=== PATIENT | male | born 1955 | race Caucasian/White ===

== ENCOUNTER 2018-05-25 17:19 | Inpatient (IN) ==
[2018-05-25] MEDS ORDERED: ONDANSETRON INJ 2 MG/ML 2 ML VIAL ONE (17:51)
--- NOTE | 2018-05-25 17:59 | XRay Report ---
SINGLE VIEW CHEST CLINICAL HISTORY: Cough and fever. FINDINGS: 2 AP, portable, upright chest radiographs are compared to study dated 05/20/2018. The examin ation is degraded by portable technique and patient rotation. The cardiomediastinal silhouette is un remarkable, noting atherosclerotic calcification of the thoracic aorta. Emphysema is suspected. Nonsp ecific interstitial thickening is unchanged and likely chronic. No airspace consolidation or large pl eural effusion is identified. Mild bibasilar scarring/atelectasis is observed. No pneumothorax is see n. The bony thorax is grossly intact. Cholecystectomy clips are seen in the right upper quadrant. IMPRESSION: No active disease in the chest. Electronically signed by: Dwayne Kaplan M.D. 05/25/2018 5:58 PM
[2018-05-25 18:01] LABS: Basophils # (auto) 0.01 K/uL (0-0.2); Eosinophils # (auto) 0.01 K/uL (0-0.5); Hematocrit (blood only) 43.7 % (42-52); Immature Granulocytes # (auto) 0.08 K/uL (0.00-0.02); Immature Granulocytes % (auto) 0.4 %; Lymphocytes # (auto) 0.42 K/uL (1.2-3.4); Lymphocytes % (auto) 2.1 %; Mean Corpuscular Hgb Conc 34.3 g/dL (32-36); Mean Corpuscular Volume 90.3 fL (80-100); Mean Platelet Volume 10.6 fL (7.4-10.4); Monocytes # (auto) 1.33 K/uL (0.11-0.59); Monocytes % (auto) 6.6 %; Neutrophils # (auto) 18.23 K/uL (1.4-6.5); Neutrophils % (auto) 90.9 %; Platelet Count 204 K/uL (130-400); RDW Standard Deviation 46.4 fL (36.4-46.3); Red Blood Count 4.84 M/uL (4.7-6.1); White Blood Count 20.08 K/uL (4.8-10.8)
[2018-05-25 18:21] LABS: Albumin Level 3.5 gm/dl (3.4-5.0); BUN Creatinine Ratio 14.4 (10-20); Calcium 8.9 mg/dl (8.5-10.1); Creatinine Clr Calc Pharmacy 84.8 ml/min; Est GFR (Non-African American) 75.1; Potassium 3.7 mmol/L (3.5-5.1)
[2018-05-25 18:23] LABS: Albumin Globulin Ratio 0.9 (0.9-2); Globulin 3.9 gm/dl (2.5-4.0); Total Protein 7.4 gm/dl (6.4-8.2)
[2018-05-25 18:29] LABS: Appearance Urine Clear (Clear); Bacteria Urine Automated Negative (Negative); Color Urine Orange; Epithelial Cell Urine Auto 20-30 /lpf (0-5); Glucose Urine UA Negative (Negative); Ketones Urine Trace (Negative); Leukocyte Esterase Urine 1+ (Negative); Nitrite Urine Positive (Negative); Protein Urine 1+ (Negative); Specific Gravity Urine 1.035 (1.000-1.030); Urobilinogen Urine Negative (Negative)
[2018-05-25] MEDS ORDERED: SODIUM CHLORIDE 0.9% 1000ML 1,000 ML IV ONE (18:30)
[2018-05-25] MEDS ORDERED: ONDANSETRON INJ 2 MG/ML 2 ML VIAL IV STA (18:30)
[2018-05-25 18:33] LABS: Bilirubin Urine 3+ (Negative); Ictotest Urine Positive (Negative)
[2018-05-25] MEDS ORDERED: OPTIRAY 320 125ml IV PRN (18:58)
--- NOTE | 2018-05-25 19:14 | CT Scan Report ---
CT SCAN OF THE ABDOMEN AND PELVIS WITH IV CONTRAST CLINICAL HISTORY: Postoperative fever and jaundice. Recent cholecystectomy. COMPARISON STUDY: Abdominal CT dated 05/19/2018. TECHNIQUE: Following the IV administration of 120 cc of Optiray 320, CT scan of the abdomen and pelv is is performed from the lung bases to the proximal femora. Images are reviewed in the axial, sagitta l, and coronal planes. IV contrast was administered without complication. A dose lowering technique w as utilized adhering to the principles of ALARA. CT DOSE: 726.56 mGy.cm FINDINGS: Lung bases: The heart is normal in size and without pericardial effusion. There is bibasilar scarring /atelectasis. No airspace consolidation or pleural effusion is identified. Liver: The contrast-enhanced liver is enlarged, measuring 19.9 cm in length. The liver is otherwise n ormal in contour and attenuation. There is no intrahepatic biliary ductal dilatation. The hepatic vei ns and portal veins are patent. Gallbladder: Surgically absent noting clips in the gallbladder fossa. There is trace fluid and strand ing noted within the gallbladder fossa. No organized fluid collection is identified. Mild wall thicke robert and enhancement is noted involving the common bile duct. Spleen: Normal in size and attenuation. Pancreas: Unremarkable. Adrenal glands: Unremarkable. Kidneys: The contrast enhanced kidneys are normal in size and without hydronephrosis. The kidneys enh ance symmetrically. Abdominal vasculature: The abdominal aorta is normal in course and caliber noting mild atheroscleroti c calcification. Bowel: There is moderate colonic diverticulosis without CT evidence of acute diverticulitis. No bowel obstruction is seen. The appendix is well-visualized and normal. The colon is largely decompressed. There is no convincing CT evidence of colitis. Submucosal fat deposition is noted throughout the col on. A small duodenal thickening is noted. Peritoneum: Intraperitoneal free air is seen below the diaphragm. Trace free fluid is seen in the pel vis. Lymphadenopathy: A prominent right cardiophrenic node measures up to 10 mm in length. This is likely on a reactive basis. No retroperitoneal common iliac chain, pelvic, or inguinal adenopathy is seen.. Pelvic viscera: The prostate gland is mildly enlarged and heterogeneous. The bladder and seminal vesi cles are normal as imaged. Fatty reconversion is noted along the right internal canal. Skeletal structures: There is mild lumbosacral spondylosis. No lytic or blastic lesions are seen. IMPRESSION: 1. There are postoperative changes from interval cholecystectomy when compared to 05/19/2018. 2. There is trace fluid and stranding within the gallbladder fossa. No organized fluid collection is identified and this is likely expected postoperative change. 3. Intraperitoneal free air is nonspecific and likely related to recent surgery. 4. There is no significant intrahepatic biliary ductal dilatation. 5. There is mild wall thickening and enhancement of the common bile duct. This is nonspecific and lik yas related to recent surgery. Superimposed infection would be impossible to exclude. Clinical correl ation will be required. 6. Trace free fluid is seen in the pelvis. 7. There is moderate colonic diverticulosis without CT evidence of acute diverticulitis. 8. Additional findings as above. Electronically signed by: Dwayne Kaplan M.D. 05/25/2018 7:11 PM
[2018-05-25] MEDS ORDERED: metroNIDAZOLE 500 MG/100 ML BAG IV STA (19:17)
[2018-05-25] MEDS ORDERED: cefTRIAXone SODIUM 1,000 MG/50 ML BAG IV STA (19:17)
[2018-05-25] MEDS ORDERED: PIPERACILL/TAZOBAC CONSULT ACTIVE PRN (19:36)
[2018-05-25] MEDS ORDERED: PROMETHAZINE HCL 25 MG in SODIUM CHLORIDE 0.9% 50 ML IV PRN (19:47)
[2018-05-25] MEDS ORDERED: PROMETHAZINE HCL 12.5 MG in SODIUM CHLORIDE 0.9% 50 ML IV PRN (19:47)
--- NOTE | 2018-05-25 20:06 | History & Physical Report ---
Date of Service May 25, 2018 Assessment & Plan (1) Cholangitis: Patient will be admitted to the hospital with suspected common bile duct obstruction. We will give him IV fluids and IV antibiotics. I have discussed his case with the hospitalist team And the GI doctor covering for the [facility] physicians. It is likely that he will require an ERCP In the near future. We will also add antiemetics to his medications. For the surgical service Dr. Stacy will be taking over tomorrow. History of Present Illness Primary Care Provider: Massimo Canchola MD Patient presents the emergency room with nausea and low-grade fever and generally not feeling well. He had a recent laparoscopic cholecystectomy on 05/21/[address] Stacy with cholangiogram which did not Show any filling defects. He did have some preoperative elevation of his liver function studies. These did come down Prior to discharge. Now in the emergency room they are elevated a total bilirubin of 3.0 and elevated AST, ALT, alkaline phosphatase. He also has a leukocytosis of 20,000. He is afebrile at the present time. His CAT scan does not show any significant abscess or fluid collection. There is some question of edema Of the common bile duct. During his hospitalization he was seen by [facility] GI doctors. Allergies Allergy/AdvReac Type Severity Reaction Status Date / Time Sulfa (Sulfonamide Allergy Unknown HAPPENED Verified 05/25/18 18:17 Antibiotics) A CHILD Home Medications Home Medications Medication Instructions Recorded Confirmed Type pantoprazole 40 mg PO BID 05/19/18 05/25/18 History sertraline 100 mg PO DAILY 05/19/18 05/25/18 History sennosides-docusate sodium 1 tab PO DAILY PRN #10 tab 05/22/18 05/25/18 Rx [Senokot-S] acetaminophen [Mapap 650 mg PO Q4H PRN 05/25/18 05/25/18 History (acetaminophen)] ibuprofen [Motrin IB] 200 - 800 mg PO DIRECTED PRN 05/25/18 05/25/18 History Past Med/Surg History Medical History Elevated LFTs (Acute) Gallstone (Acute) Depression GERD (gastroesophageal reflux disease) Hepatitis Social History Current Living Situation: Family Feels Safe at Home: Yes Smoking Status: Never smoker Tobacco Type: cigarettes Cigarettes per Day: 10 Hx Alcohol Use: No Hx Substance Use: No Beliefs That Will Affect Care: None Preferred Language: Norwegian Review of Systems Please see HPI 10 other systems reviewed and negative Physical Exam 2 Vital Signs (Past 24 Hours): Last Vital Signs Temp 36.4 C L 05/25/18 17:20 Pulse 132 H 05/25/18 17:20 Resp 20 05/25/18 17:20 BP 100/68 05/25/18 17:20 Pulse Ox 94 05/25/18 17:36 Currently patient is in the ER bed he is awake and alert does appear to be somewhat ill. He does not show significant icterus his neck is supple. He is in no respiratory distress. His heart shows regular rhythm with mild tachycardia. His extremities are warm. Results & Data Diagnostic Findings I did review his CAT scan
[2018-05-25] MEDS ORDERED: SODIUM CHLORIDE 0.9% 1000ML 1,000 ML IV SCH (20:15)
[2018-05-25] MEDS ORDERED: POTASSIUM CHLORIDE 20 MEQ TABCR PO STA (20:19)
[2018-05-25] MEDS ORDERED: NSS + 20MEQ KCL 20 MEQ/1,000 ML BAG IV ONE (20:23)
[2018-05-25] MEDS ORDERED: DOCUSATE SODIUM/SENNA 50/8.6MG TAB PO PRN (20:29)
[2018-05-25] MEDS ORDERED: PIPERACILLIN/TAZOBACTAM 3.375 GM in DEXTROSE 5% 100 ML IV ONE ×2 (20:45→22:00)
[2018-05-25] MEDS: ONDANSETRON INJ 2 MG/ML 2 ML VIAL IV PRN (20:57)
[2018-05-25 21:13] LABS: Magnesium 1.6 mg/dl (1.8-2.4)
[2018-05-25] MEDS: PANTOprazole 40 MG TAB PO SCH (21:23)
[2018-05-25] MEDS ORDERED: ACETAMINOPHEN 325 MG TAB PO PRN (21:28)
--- NOTE | 2018-05-25 21:33 | Hospitalist Consultation ---
Date of Consultation May 25, 2018 Assessment & Plan (1) Sepsis: Final Assessment and Recommendations as follows : Sepsis Possible sources : Biliary tract ? Beginning cholangitis ? UTI mood disorder, stable prediabetes, hemoglobin A1c of 5.9 during recent confinement ongoing tobacco abuse. Cultures, check lactic acid IV fluid Agree with Zosyn Follow LFTs in a.m. GI consult in a.m. RE CBD thickening on imaging Nicotine patch as needed DVT prophylaxis. SCDs as per General Surgery admission orders (Recommend pharmacologic anticoagulation with Lovenox 40 mg SQ daily once bleeding risk is deemed to be minimal and negligible by primary service.) Thank you very much for this consultation. Dr. Ciu will follow patient's progress. History of Present Illness Reason for Consultation: medical management Requesting Physician: Dr. Clemons Attending Physician: Aileen Stacy MD History of Present Illness PCP : Dr. Canchola History obtained from patient, family, and records. Medical history significant for mood disorder, prediabetes, ongoing tobacco abuse. Recent confinement May 19-2018 for gangrenous cholecystitis status post cholecystectomy. Tolerable postop discomfort at home. Today patient woke up this morning, not feeling well w/ poor appetite, nausea symptoms. Fever at home. No unusual abdominal pain as per patient. Urine kind of dark. Rectal urgency although patient denies diarrhea. Patient denies chest pain, SOB, cough symptoms. At the ER, patient received Ceftriaxone and Flagyl for possible sepsis. Patient currently admitted under General Surgery service. Medical History as above Surgical History : Hemorrhoidectomy, cholecystectomy, biopsy procedures for fertility treatments Family History : Heart disease, diabetes Personal/Social history : 1.5 packs daily, no EtOH intake, local company truck driver/ businessman Allergies Allergy/AdvReac Type Severity Reaction Status Date / Time Sulfa (Sulfonamide Allergy Unknown HAPPENED Verified 05/25/18 18:17 Antibiotics) A CHILD Home Medications Home Medications Medication Instructions Recorded Confirmed Type pantoprazole 40 mg PO BID 05/19/18 05/25/18 History sertraline 100 mg PO DAILY 05/19/18 05/25/18 History sennosides-docusate sodium 1 tab PO DAILY PRN #10 tab 05/22/18 05/25/18 Rx [Senokot-S] acetaminophen [Mapap 650 mg PO Q4H PRN 05/25/18 05/25/18 History (acetaminophen)] ibuprofen [Motrin IB] 200 - 800 mg PO DIRECTED PRN 05/25/18 05/25/18 History Patient History Medical History Elevated LFTs (Acute) Gallstone (Acute) Depression GERD (gastroesophageal reflux disease) Hepatitis Social History Current Living Situation: Spouse Other Information That Helps Us Care for You: No Feels Safe at Home: Yes Safety Concerns: Feels Safe At This Time Smoking Status: Current every day smoker Tobacco Type: cigarettes Do You Dip or Chew Tobacco: No Second Hand Exposure: Yes Tobacco Cessation Education Requested by Patient: Yes Hx Alcohol Use: No Hx Substance Use: No Beliefs That Will Affect Care: None Preferred Language: [place] Communication Ability: Effective Review of Systems As per HPI, all 10 systems reviewed, all other ROS negative Physical Exam 2 Vital Signs (Past 24 Hours): Last Vital Signs Temp 37.5 C 05/25/18 20:31 Pulse 136 H 05/25/18 20:31 Resp 16 05/25/18 20:31 BP 124/78 05/25/18 20:31 Pulse Ox 96 05/25/18 20:31 Physical Exam: GENERAL: uncomfortable, lying on his right side, no respiratory distress SKIN: Pallor , warm HEENT: Alopecia, pale palpebral conjunctivae, no ptosis, adhesive strip over nasal dorsum, dry buccal mucosa NECK : Supple, no tenderness CHEST : CTA, no tenderness HEART : Tachycardic , no obvious murmurs ABDOMEN: Some distention, no overt tenderness, dressings in place EXTREMITIES : No LE swelling/tenderness, no other conspicuous deformities noted NEUROLOGIC : Coherent, no facial asymmetry, no other gross focality Results & Data Laboratory Results Laboratory Results WBC 20.08 K/uL (4.8-10.8) H 05/25/18 17:48 RBC 4.84 M/uL (4.7-6.1) 05/25/18 17:48 Hgb 15.0 g/dL (14.0-18.0) 05/25/18 17:48 Hct 43.7 % (42-52) 05/25/18 17:48 MCV 90.3 fL (80-100) 05/25/18 17:48 MCH 31.0 pg (25-34) 05/25/18 17:48 MCHC 34.3 g/dL (32-36) 05/25/18 17:48 RDW Std Deviation 46.4 fL (36.4-46.3) H 05/25/18 17:48 RDW Coeff of Angela 14.0 % (11.5-14.5) 05/25/18 17:48 Plt Count 204 K/uL (130-400) 05/25/18 17:48 MPV 10.6 fL (7.4-10.4) H 05/25/18 17:48 Immature Gran % (Auto) 0.4 % 05/25/18 17:48 Neut % (Auto) 90.9 % 05/25/18 17:48 Lymph % (Auto) 2.1 % 05/25/18 17:48 [place] % (Auto) 6.6 % 05/25/18 17:48 Eos % (Auto) 0.0 % 05/25/18 17:48 Baso % (Auto) 0.0 % 05/25/18 17:48 Immature Gran # (Auto) 0.08 K/uL (0.00-0.02) H 05/25/18 17:48 Neut # (Auto) 18.23 K/uL (1.4-6.5) H 05/25/18 17:48 Lymph # (Auto) 0.42 K/uL (1.2-3.4) L 05/25/18 17:48 [place] # (Auto) 1.33 K/uL (0.11-0.59) H 05/25/18 17:48 Eos # (Auto) 0.01 K/uL (0-0.5) 05/25/18 17:48 Baso # (Auto) 0.01 K/uL (0-0.2) 05/25/18 17:48 Sodium 136 mmol/L (136-145) 05/25/18 17:48 Potassium 3.7 mmol/L (3.5-5.1) 05/25/18 17:48 Chloride 104 mmol/L (98-107) 05/25/18 17:48 Carbon Dioxide 25 mmol/L (21-32) 05/25/18 17:48 Anion Gap 7.0 (3-11) 05/25/18 17:48 BUN 15 mg/dl (7-18) 05/25/18 17:48 Creatinine 1.07 mg/dl (0.6-1.4) 05/25/18 17:48 Est Cr Clr Drug Dosing 84.8 ml/min 05/25/18 17:48 Est GFR ( Amer) 87.0 05/25/18 17:48 Est GFR (Non-Af Amer) 75.1 05/25/18 17:48 BUN/Creatinine Ratio 14.4 (10-20) 05/25/18 17:48 Glucose 115 mg/dl (70-99) H 05/25/18 17:48 Lactate 1.4 mmol/L (0.4-2.0) 05/25/18 20:48 Calcium 8.9 mg/dl (8.5-10.1) 05/25/18 17:48 Magnesium 1.6 mg/dl (1.8-2.4) L 05/25/18 20:48 Total Bilirubin 3.0 mg/dl (0.2-1) H 05/25/18 17:48 AST 221 U/L (15-37) H 05/25/18 17:48 ALT 319 U/L (12-78) H 05/25/18 17:48 Alkaline Phosphatase 431 U/L (45-117) H 05/25/18 17:48 Total Protein 7.4 gm/dl (6.4-8.2) 05/25/18 17:48 Albumin 3.5 gm/dl (3.4-5.0) 05/25/18 17:48 Globulin 3.9 gm/dl (2.5-4.0) 05/25/18 17:48 Albumin/Globulin Ratio 0.9 (0.9-2) 05/25/18 17:48 Lipase 81 U/L (73-393) 05/25/18 17:48 Urine Color [place] 05/25/18 17:55 Urine Appearance Clear (Clear) 05/25/18 17:55 Urine pH 6.0 (4.5-7.5) 05/25/18 17:55 Ur Specific [place] 1.035 (1.000-1.030) H 05/25/18 17:55 Urine Protein 1+ (Negative) H 05/25/18 17:55 Urine Glucose (UA) Negative (Negative) 05/25/18 17:55 Urine Ketones Trace (Negative) H 05/25/18 17:55 Urine Blood Negative (Negative) 05/25/18 17:55 Urine Nitrite Positive (Negative) H 05/25/18 17:55 Urine Bilirubin 3+ (Negative) H 05/25/18 17:55 Urine Urobilinogen Negative (Negative) 05/25/18 17:55 Ur Leukocyte Esterase 1+ (Negative) H 05/25/18 17:55 Urine WBC (Auto) 1-5 /hpf (0-5) 05/25/18 17:55 Urine RBC (Auto) 0-4 /hpf (0-4) 05/25/18 17:55 U Hyaline Cast (Auto) 5-10 /lpf (0-5) H 05/25/18 17:55 U Epithel Cells (Auto) 20-30 /lpf (0-5) H 05/25/18 17:55 Urine Bacteria (Auto) Negative (Negative) 05/25/18 17:55 Diagnostic Findings CXR no active disease: CT abdomen pelvis: 1. There are postoperative changes from interval cholecystectomy when compared to 05/19/2018. 2. There is trace fluid and stranding within the gallbladder fossa. No organized fluid collection is identified and this is likely expected postoperative change. 3. Intraperitoneal free air is nonspecific and likely related to recent surgery. 4. There is no significant intrahepatic biliary ductal dilatation. 5. There is mild wall thickening and enhancement of the common bile duct. This is nonspecific and likely related to recent surgery. Superimposed infection would be impossible to exclude. Clinical correlation will be required. 6. Trace free fluid is seen in the pelvis. 7. There is moderate colonic diverticulosis without CT evidence of acute diverticulitis. EKG as per my interpretation: Rate 115, sinus tachycardia, LAD, LAFB, inferior infarct, MN WP
--- NOTE | 2018-05-25 21:42 | Emergency Department Note ---
Entered by Henry Lundy acting as a scribe for History of Present Illness General Chief complaint: Vomiting Stated complaint: SURG WED, VOMITING,FEVER Source: patient Limitations: no limitations History of Present Illness Provider complaint: Nausea Onset (ago): hour(s) (13.5) Location: abdomen ([place]) Severity: moderate (101.0) Pain Consistency: + constant Maximum Pain Intensity: 3 Quality: + other (Fever, nausea) Associated symptoms: + fever/chills The patient is a 62 year old male who presents to the Emergency Room with complaints of persistent nausea that began at 0400 this morning, 13.5 hours ago. The patient states that he had a cholecystectomy performed on Saturday, 4 days ago and was discharged from the hospital the next day. The cholecystectomy was not planned and he was taken to the OR after presenting to the emergency department with abdominal pain. He notes that he woke up this morning feeling nauseous and febrile. The patient has not vomited at all. He did have a recorded temperature of 101.0 degrees earlier this morning per the . He denies any new abdominal pain, or cough/runny nose/urinary symptoms. The patient visited with his PCP today who referred him to the emergency department as he thought he was "jaundiced." He adds that he had 6 "small bowel movements" throughout the day today, but adds that he has had issues with hist bowel movements his whole life. Home Medications Home Medications Medication Instructions Recorded Confirmed Type pantoprazole 40 mg PO BID 05/19/18 05/25/18 History sertraline 100 mg PO DAILY 05/19/18 05/25/18 History sennosides-docusate sodium 1 tab PO DAILY PRN #10 tab 05/22/18 05/25/18 Rx [Senokot-S] acetaminophen [Mapap 650 mg PO Q4H PRN 05/25/18 05/25/18 History (acetaminophen)] ibuprofen [Motrin IB] 200 - 800 mg PO DIRECTED PRN 05/25/18 05/25/18 History Allergies Allergy/AdvReac Type Severity Reaction Status Date / Time Sulfa (Sulfonamide Allergy Unknown HAPPENED Verified 05/25/18 18:17 Antibiotics) A CHILD Past Med/Surg History Medical History Elevated LFTs (Acute) Gallstone (Acute) Depression GERD (gastroesophageal reflux disease) Hepatitis Social History Current Living Situation: Spouse Other Information That Helps Us Care for You: No Feels Safe at Home: Yes Safety Concerns: Feels Safe At This Time Smoking Status: Current every day smoker Tobacco Type: cigarettes Do You Dip or Chew Tobacco: No Second Hand Exposure: Yes Tobacco Cessation Education Requested by Patient: Yes Hx Alcohol Use: No Hx Substance Use: No Beliefs That Will Affect Care: None Preferred Language: Kiswahili Communication Ability: Effective Review of Systems See HPI for pertinent positives & negatives. and A total of 10 systems reviewed and were otherwise negative Physical Exam Vital Signs Vital Signs - 24 hr 05/25/18 17:20 05/25/18 17:36 05/25/18 20:20 Temperature 36.4 C L 37.1 C Temperature Source Oral Oral Sepsis Recent Fever Within 48 Hours Yes Sepsis New/Unexplained Change in Mental Status No Sepsis Action Taken by Nursing No Action Required Pulse Rate 132 H 103 H Pulse Rate [Right Finger] Pulse Rhythm Regular Pulse Strength Normal Respiratory Rate 20 16 Respiratory Effort / Characteristics Respiratory Depth Normal Respiratory Pattern Regular Blood Pressure 100/68 101/52 L Blood Pressure [Left Arm] Blood Pressure Mean 78 Blood Pressure Mean [Left Arm] Blood Pressure Position Sitting Blood Pressure Position [Left Arm] Pulse Oximetry 95 94 98 Oxygen Delivery Method Room Air Room Air 05/25/18 20:31 Temperature 37.5 C Temperature Source Oral Sepsis Recent Fever Within 48 Hours Sepsis New/Unexplained Change in Mental Status Sepsis Action Taken by Nursing Pulse Rate Pulse Rate [Right Finger] 136 H Pulse Rhythm Pulse Strength Respiratory Rate 16 Respiratory Effort / Characteristics Non-Labored Spontaneous Respiratory Depth Normal Respiratory Pattern Regular Blood Pressure Blood Pressure [Left Arm] 124/78 Blood Pressure Mean Blood Pressure Mean [Left Arm] 93 Blood Pressure Position Blood Pressure Position [Left Arm] Sitting Pulse Oximetry 96 Oxygen Delivery Method Room Air GENERAL: Sitting up in bed, alert, chronically ill appearing, no distress, non- toxic EYE EXAM: normal conjunctiva. OROPHARYNX: no exudate, no erythema, lips, buccal mucosa, and tongue normal and mucous membranes are moist NECK: supple, no nuchal rigidity, no adenopathy, non-tender LUNGS: Clear to auscultation. Normal chest wall mechanics HEART: no murmurs, S1 normal and S2 normal ABDOMEN: abdomen soft. There are 4 port incisions in abdomen - clean, dry, intact. Steri-strips are in place. Faint tenderness present in right upper quadrant. Normo-active bowel, sounds, no masses, no rebound or guarding. BACK: Back is symmetrical on inspection and there is no deformity, no midline tenderness, no CVA tenderness. SKIN: no rashes and no bruising UPPER EXTREMITIES: upper extremities are grossly normal. LOWER EXTREMITIES: No pitting edema. NEURO EXAM: Normal sensorium, cranial nerves II-XII grossly intact, normal speech, no gross weakness of arms, no gross weakness of legs. Course ED COURSE: Vital signs were reviewed and showed hypertensive and tachycardic vitals. The patients medical record was reviewed The above diagnostic studies were performed and reviewed. ED treatments and interventions as stated above. 1725: The patient was evaluated in room B10. A complete history and physical examination was performed. 1920: I reviewed the patient's case with Dr. Deonte Avila. He will admit the patient. 1927: Upon reevaluation, the patient is resting in bed. I discussed my findings with the patient and he understands and agrees with the treatment plan. Based on the patients age, coexisting illnesses, exam and lab findings the decision to treat as an inpatient was made. The patient remained stable while under my care. The patient will be evaluated for further management. Consultations Consultation #1: 1920: I reviewed the patient's case with Dr. Deonte Avila. He will admit the patient. Administered Medications Potassium Chloride/Sodium Chloride (Normal Saline W/20 Meq Kcl) 20 meq in 1, 000 mls @ 500 mls/hr IV .Q2H ONE Stop: 05/25/18 22:22 Last Admin: 05/25/18 21:16 Dose: 500 mls/hr Ioversol (Optiray 320 125ml) 120 ml IV ONCE PRN PRN Reason: Interaction Checking Stop: 05/29/18 18:57 Last Admin: 05/25/18 18:58 Dose: 120 ml Ondansetron HCl (Zofran) 4 mg IV Q3HWA PRN PRN Reason: Nausea Stop: 06/24/18 19:46 Last Admin: 05/25/18 20:57 Dose: 4 mg Pantoprazole Sodium (Protonix) 40 mg PO BID SUZETTE Stop: 06/24/18 20:59 Last Admin: 05/25/18 21:23 Dose: 40 mg Discontinued Medications Sodium Chloride (Nss 1000ml) 1,000 mls @ 999 mls/hr IV .Q1H1M ONE Stop: 05/25/18 19:30 Last Infusion: 05/25/18 19:53 Dose: 0 mls/hr Admin: 05/25/18 18:46 Dose: 999 mls/hr Metronidazole (Flagyl) 500 mg in 100 mls @ 100 mls/hr IV NOW STA Stop: 05/25/18 20:16 Last Infusion: 05/25/18 21:29 Dose: 0 mls/hr Admin: 05/25/18 19:51 Dose: 100 mls/hr Ceftriaxone Sodium (Rocephin) 1,000 mg in 50 mls @ 100 mls/hr IV NOW STA Stop: 05/25/18 19:46 Last Infusion: 05/25/18 20:21 Dose: 0 mls/hr Admin: 05/25/18 19:51 Dose: 100 mls/hr Sodium Chloride (Nss 1000ml) 1,000 mls @ 125 mls/hr IV .Q8H SUZETTE Stop: 06/24/18 20:14 Last Admin: 05/25/18 21:32 Dose: Not Given Piperacillin Sod/Tazobactam (Sod 3.375 gm/ Dextrose) 115 mls @ 230 mls/hr IV ONE ONE Stop: 05/25/18 21:14 Last Admin: 05/25/18 21:29 Dose: 230 mls/hr Ondansetron HCl (Zofran) Confirm Administered Dose 4 mg .ROUTE .STK-MED ONE Stop: 05/25/18 17:52 Last Admin: 05/25/18 17:54 Dose: 4 mg Ondansetron HCl (Zofran) 4 mg IV NOW STA Stop: 05/25/18 18:31 Last Admin: 05/25/18 18:45 Dose: Not Given Potassium Chloride (Klor-Con M20) 40 meq PO NOW STA Stop: 05/25/18 20:20 Last Admin: 05/25/18 21:23 Dose: 40 meq Medical Decision Making Differential Diagnosis Differential diagnosis: Etiologies such as biliary colic, cholecystitis, hepatitis, pancreatitis, cardiac disease, pancreatitis, gastritis, peptic ulcer disease, appendicitis, cystitis, diverticulitis, mesenteric ischemia, inflammatory bowel disease, ileus , bowel obstruction, testicular torsion, aortic pathology, shingles, as well as others were considered. Medical Records Attestation: I reviewed the patient's medical records. Home Medications Current Medication List: was personally reviewed by me Laboratory Data Attestation: I reviewed the patient's lab results. Result diagrams: 05/25/18 17:48 05/25/18 17:48 Lab Results 05/25/18 05/25/18 05/25/18 Range/Units 17:48 17:48 17:55 WBC 20.08 H (4.8-10.8) K/uL RBC 4.84 (4.7-6.1) M/uL Hgb 15.0 (14.0-18.0) g/dL Hct 43.7 (42-52) % MCV 90.3 (80-100) fL MCH 31.0 (25-34) pg MCHC 34.3 (32-36) g/dL RDW Std Deviation 46.4 H (36.4-46.3) fL RDW Coeff of Angela 14.0 (11.5-14.5) % Plt Count 204 (130-400) K/uL MPV 10.6 H (7.4-10.4) fL Immature Gran % (Auto) 0.4 % Neut % (Auto) 90.9 % Lymph % (Auto) 2.1 % [place] % (Auto) 6.6 % Eos % (Auto) 0.0 % Baso % (Auto) 0.0 % Immature Gran # (Auto) 0.08 H (0.00-0.02) K/uL Neut # (Auto) 18.23 H (1.4-6.5) K/uL Lymph # (Auto) 0.42 L (1.2-3.4) K/uL [place] # (Auto) 1.33 H (0.11-0.59) K/uL Eos # (Auto) 0.01 (0-0.5) K/uL Baso # (Auto) 0.01 (0-0.2) K/uL Sodium 136 (136-145) mmol/L Potassium 3.7 (3.5-5.1) mmol/L Chloride 104 (98-107) mmol/L Carbon Dioxide 25 (21-32) mmol/L Anion Gap 7.0 (3-11) BUN 15 (7-18) mg/dl Creatinine 1.07 (0.6-1.4) mg/dl Est Cr Clr Drug Dosing 84.8 ml/min Est GFR ( Amer) 87.0 Est GFR (Non-Af Amer) 75.1 BUN/Creatinine Ratio 14.4 (10-20) Glucose 115 H (70-99) mg/dl Lactate (0.4-2.0) mmol/L Calcium 8.9 (8.5-10.1) mg/dl Magnesium (1.8-2.4) mg/dl Total Bilirubin 3.0 H (0.2-1) mg/dl AST 221 H (15-37) U/L ALT 319 H (12-78) U/L Alkaline Phosphatase 431 H (45-117) U/L Total Protein 7.4 (6.4-8.2) gm/dl Albumin 3.5 (3.4-5.0) gm/dl Globulin 3.9 (2.5-4.0) gm/dl Albumin/Globulin Ratio 0.9 (0.9-2) Lipase 81 (73-393) U/L Urine Color [place] Urine Appearance Clear (Clear) Urine pH 6.0 (4.5-7.5) Ur Specific [place] 1.035 H (1.000-1.030) Urine Protein 1+ H (Negative) Urine Glucose (UA) Negative (Negative) Urine Ketones Trace H (Negative) Urine Blood Negative (Negative) Urine Nitrite Positive H (Negative) Urine Bilirubin 3+ H (Negative) Urine Urobilinogen Negative (Negative) Ur Leukocyte Esterase 1+ H (Negative) Urine WBC (Auto) 1-5 (0-5) /hpf Urine RBC (Auto) 0-4 (0-4) /hpf U Hyaline Cast (Auto) 5-10 H (0-5) /lpf U Epithel Cells (Auto) 20-30 H (0-5) /lpf Urine Bacteria (Auto) Negative (Negative) 05/25/18 05/25/18 Range/Units 20:48 20:48 WBC (4.8-10.8) K/uL RBC (4.7-6.1) M/uL Hgb (14.0-18.0) g/dL Hct (42-52) % MCV (80-100) fL MCH (25-34) pg MCHC (32-36) g/dL RDW Std Deviation (36.4-46.3) fL RDW Coeff of Angela (11.5-14.5) % Plt Count (130-400) K/uL MPV (7.4-10.4) fL Immature Gran % (Auto) % Neut % (Auto) % Lymph % (Auto) % [place] % (Auto) % Eos % (Auto) % Baso % (Auto) % Immature Gran # (Auto) (0.00-0.02) K/uL Neut # (Auto) (1.4-6.5) K/uL Lymph # (Auto) (1.2-3.4) K/uL [place] # (Auto) (0.11-0.59) K/uL Eos # (Auto) (0-0.5) K/uL Baso # (Auto) (0-0.2) K/uL Sodium (136-145) mmol/L Potassium (3.5-5.1) mmol/L Chloride (98-107) mmol/L Carbon Dioxide (21-32) mmol/L Anion Gap (3-11) BUN (7-18) mg/dl Creatinine (0.6-1.4) mg/dl Est Cr Clr Drug Dosing ml/min Est GFR ( Amer) Est GFR (Non-Af Amer) BUN/Creatinine Ratio (10-20) Glucose (70-99) mg/dl Lactate 1.4 (0.4-2.0) mmol/L Calcium (8.5-10.1) mg/dl Magnesium 1.6 L (1.8-2.4) mg/dl Total Bilirubin (0.2-1) mg/dl AST (15-37) U/L ALT (12-78) U/L Alkaline Phosphatase (45-117) U/L Total Protein (6.4-8.2) gm/dl Albumin (3.4-5.0) gm/dl Globulin (2.5-4.0) gm/dl Albumin/Globulin Ratio (0.9-2) Lipase (73-393) U/L Urine Color Urine Appearance (Clear) Urine pH (4.5-7.5) Ur Specific [place] (1.000-1.030) Urine Protein (Negative) Urine Glucose (UA) (Negative) Urine Ketones (Negative) Urine Blood (Negative) Urine Nitrite (Negative) Urine Bilirubin (Negative) Urine Urobilinogen (Negative) Ur Leukocyte Esterase (Negative) Urine WBC (Auto) (0-5) /hpf Urine RBC (Auto) (0-4) /hpf U Hyaline Cast (Auto) (0-5) /lpf U Epithel Cells (Auto) (0-5) /lpf Urine Bacteria (Auto) (Negative) Imaging Data Attestation: I personally reviewed and interpreted this imaging study as follows : Radiologist's Impression: SINGLE VIEW CHEST CLINICAL HISTORY: Cough and fever. FINDINGS: 2 AP, portable, upright chest radiographs are compared to study dated 05/20/2018. The examination is degraded by portable technique and patient rotation. The cardiomediastinal silhouette is unremarkable, noting atherosclerotic calcification of the thoracic aorta. Emphysema is suspected. Nonspecific interstitial thickening is unchanged and likely chronic. No airspace consolidation or large pleural effusion is identified. Mild bibasilar scarring/atelectasis is observed. No pneumothorax is seen. The bony thorax is grossly intact. Cholecystectomy clips are seen in the right upper quadrant. IMPRESSION: No active disease in the chest. Electronically signed by: Dwayne Kaplan M.D. 05/25/2018 5:[address] SCAN OF THE ABDOMEN AND PELVIS WITH IV CONTRAST CLINICAL HISTORY: Postoperative fever and jaundice. Recent cholecystectomy. COMPARISON STUDY: Abdominal CT dated 05/19/2018. TECHNIQUE: Following the IV administration of 120 cc of Optiray 320, CT scan of the abdomen and pelvis is performed from the lung bases to the proximal femora. Images are reviewed in the axial, sagittal, and coronal planes. IV contrast was administered without complication. A dose lowering technique was utilized adhering to the principles of ALARA. CT DOSE: 726.56 mGy.cm FINDINGS: Lung bases: The heart is normal in size and without pericardial effusion. There is bibasilar scarring/atelectasis. No airspace consolidation or pleural effusion is identified. Liver: The contrast-enhanced liver is enlarged, measuring 19.9 cm in length. The liver is otherwise normal in contour and attenuation. There is no intrahepatic biliary ductal dilatation. The hepatic veins and portal veins are patent. Gallbladder: Surgically absent noting clips in the gallbladder fossa. There is trace fluid and stranding noted within the gallbladder fossa. No organized fluid collection is identified. Mild wall thickening and enhancement is noted involving the common bile duct. Spleen: Normal in size and attenuation. Pancreas: Unremarkable. Adrenal glands: Unremarkable. Kidneys: The contrast enhanced kidneys are normal in size and without hydronephrosis. The kidneys enhance symmetrically. Abdominal vasculature: The abdominal aorta is normal in course and caliber noting mild atherosclerotic calcification. Bowel: There is moderate colonic diverticulosis without CT evidence of acute diverticulitis. No bowel obstruction is seen. The appendix is well-visualized and normal. The colon is largely decompressed. There is no convincing CT evidence of colitis. Submucosal fat deposition is noted throughout the colon. A small duodenal thickening is noted. Peritoneum: Intraperitoneal free air is seen below the diaphragm. Trace free fluid is seen in the pelvis. Lymphadenopathy: A prominent right cardiophrenic node measures up to 10 mm in length. This is likely on a reactive basis. No retroperitoneal common iliac chain, pelvic, or inguinal adenopathy is seen.. Pelvic viscera: The prostate gland is mildly enlarged and heterogeneous. The bladder and seminal vesicles are normal as imaged. Fatty reconversion is noted along the right internal canal. Skeletal structures: There is mild lumbosacral spondylosis. No lytic or blastic lesions are seen. IMPRESSION: 1. There are postoperative changes from interval cholecystectomy when compared to 05/19/2018. 2. There is trace fluid and stranding within the gallbladder fossa. No organized fluid collection is identified and this is likely expected postoperative change. 3. Intraperitoneal free air is nonspecific and likely related to recent surgery. 4. There is no significant intrahepatic biliary ductal dilatation. 5. There is mild wall thickening and enhancement of the common bile duct. This is nonspecific and likely related to recent surgery. Superimposed infection would be impossible to exclude. Clinical correlation will be required. 6. Trace free fluid is seen in the pelvis. 7. There is moderate colonic diverticulosis without CT evidence of acute diverticulitis. 8. Additional findings as above. Electronically signed by: Dwayne Kaplan M.D. 05/25/2018 7:11 PM Blood Pressure Blood Pressure Findings: Elevated blood pressure Blood Pressure Disposition: further management by hospitalist BRAYAN Narrative Patient is a 8-year-old male that presents the ER for nausea associated with fevers of 101. He is postop from a cholecystectomy this past Saturday. Vitals were fairly unremarkable. Labs remarkable for a leukocytosis of 20,000. He was tachycardic in the 130s. BMP was unremarkable. Lactate was at 1.4. Bili was elevated at 3 along with a transaminitis in the 300s. Lipase was normal. UA had bilirubin and nitrates. CT abdomen pelvis confirms some thickening of the CBD. Discussed with general surgery. Patient was given 2 L IV fluids, IV Zofran, IV Flagyl and Rocephin for possible ascending cholangitis. I do question a retained stone in CBD. Patient was updated bedside and admitted to the hospitalist for further workup. Impression & Plan Common bile duct (CBD) obstruction, Transaminitis Discharge Plan Visit Data *Final* Discharge Date/Time: 05/25/18 20:20 Chief Complaint: Vomiting Stated Complaint: SURG WED, VOMITING,FEVER ED Provider: Heriberto Velazquez Discharge Problem: Common bile duct (CBD) obstruction, Transaminitis Patient Disposition: Admitted As Inpatient Discharge Instructions Interventions: ED Discharge Assessment Last Done: 05/25/18 20:20 The scribe's documentation has been prepared under my direction and personally reviewed by me in its entirety. I confirm that the note above accurately reflects all work, treatment, procedures, and medical decision making performed by me.
[2018-05-25] MEDS ORDERED: LORazepam 0.5 MG/1 ML VIAL IV PRN (21:59)
[2018-05-25] MEDS: MAGNESIUM SULFATE / D5W 1 GM/100 ML BAG IV SCH ×2 (22:14→23:17)
[2018-05-25] MEDS: NSS + 20MEQ KCL 20 MEQ/1,000 ML BAG IV SCH (23:17)
[2018-05-26] MEDS: PIPERACILLIN/TAZOBACTAM 3.375 GM in DEXTROSE 5% 100 ML IV SCH ×3 (01:25→17:29)
[2018-05-26 06:00] LABS: Basophils # (auto) 0.04 K/uL (0-0.2); Basophils % (auto) 0.2 %; Eosinophils # (auto) 0.04 K/uL (0-0.5); Eosinophils % (auto) 0.2 %; Hemoglobin 14.2 g/dL (14.0-18.0); Immature Granulocytes # (auto) 0.06 K/uL (0.00-0.02); Immature Granulocytes % (auto) 0.3 %; Lymphocytes # (auto) 1.03 K/uL (1.2-3.4); Lymphocytes % (auto) 4.7 %; Mean Corpuscular Hgb Conc 33.8 g/dL (32-36); Mean Corpuscular Volume 92.1 fL (80-100); Mean Platelet Volume 10.5 fL (7.4-10.4); Monocytes # (auto) 0.99 K/uL (0.11-0.59); Monocytes % (auto) 4.5 %; Neutrophils # (auto) 19.96 K/uL (1.4-6.5); Neutrophils % (auto) 90.1 %; Platelet Count 229 K/uL (130-400); RDW Coefficient of Variation 14.5 % (11.5-14.5); RDW Standard Deviation 48.9 fL (36.4-46.3); Red Blood Count 4.56 M/uL (4.7-6.1); White Blood Count 22.12 K/uL (4.8-10.8)
[2018-05-26 06:27] LABS: Albumin Level 3.2 gm/dl (3.4-5.0); BUN Creatinine Ratio 12.5 (10-20); Bilirubin Direct 1.1 mg/dl (0-0.2); Calcium 9.1 mg/dl (8.5-10.1); Creatinine Clr Calc Pharmacy 78.2 ml/min; Est GFR (African American) 78.9; Est GFR (Non-African American) 68.1; Magnesium 2.2 mg/dl (1.8-2.4); Potassium 4.3 mmol/L (3.5-5.1)
[2018-05-26] MEDS: NSS + 20MEQ KCL 20 MEQ/1,000 ML BAG IV SCH ×2 (06:27→16:10)
[2018-05-26 06:31] LABS: Albumin Globulin Ratio 0.8 (0.9-2); Bilirubin,Total 1.5 mg/dl (0.2-1); Globulin 3.8 gm/dl (2.5-4.0)
[2018-05-26] MEDS ORDERED: INFLUENZA ADMINISTRATION CHARGE ONE (08:00)
[2018-05-26] MEDS ORDERED: INFLUENZA VIRUS QUAD VACCINE 0.5 ML SYR IM ONE (08:00)
[2018-05-26] MEDS: SERTRALINE HCL 100 MG TABLET PO SCH (09:04)
--- NOTE | 2018-05-26 09:06 | Gastrointestinal Consultation ---
Date of Consultation May 26, 2018 Assessment & Plan (1) Cholangitis: 1. Due to claustrophobia, we are unable to get an MRCP. 2. Fever, leukocytosis, elevated LFTs is most consistent with cholangitis and urgent ERCP is arranged for this afternoon. 3. Follow LFTs, CBC daily. 4. Keep NPO. 5. Agree with Zosyn and recommend coverage of cholangitis for total of 10 days. Present on Admission?: Yes (2) Diarrhea: 1. Stool for C-diff, culture. Present on Admission?: Yes Supervising Physician Co-Signing Physician Notes I saw and evaluated the patient. ERCP has been requested due to a presentation c/w cholangitis. PE Mild distress RUQ with tenderness to palpation Impression: symptoms and presentation c/w with cholangitis. Will plan for ERCP today with likely stent placement. We have discussed the risks to includee bleeding, infection, perforation, pain, failed cannulation and pancreatitis. Plan ERCP today continue broad spectrum abx History of Present Illness Reason for Consultation: Cholangitis Requesting Physician: Dr. Robert Clemons Attending Physician: Aileen Stacy MD History of Present Illness Mr. Maxwell is a 62 yr old male who was admitted last week to [facility] for cholecystitis. At that time, an US prior to arrival, in the [facility] OP system suggested this as well as a dilated bile duct from 8-13 mm. When he arrived for that admission, CT and US were w/o bile duct abnormalities though the LFTs were elevated (T BIli 4, transaminases 100 - 20's) but trended down He underwent lap cholecystectomy by Dr. Stacy on 05/21 with normal operative cholangiogram. He was discharged on 05/22. He did well until early yesterday morning when he awakened with nausea, vomiting. Later yesterday, he experienced a fever of 101 thus returned to [facility] ED. He reports body aches, new diarrhea starting this morning but has only minimal abominal pain. On arrival, he has leukocytosis 20->22, elevated neutrophils 18->19, and elevated LFTs (T Bili3->1.5), AST 221->132, ALT 319->267, Alk Phos 431->267. On CT, there was note of mild wall thickening of the CBD as well a fluid in the gallbladder fossa but no organized collection. Allergies Allergy/AdvReac Type Severity Reaction Status Date / Time Sulfa (Sulfonamide Allergy Unknown HAPPENED Verified 05/25/18 18:17 Antibiotics) A CHILD Home Medications Home Medications Medication Instructions Recorded Confirmed Type pantoprazole 40 mg PO BID 05/19/18 05/25/18 History sertraline 100 mg PO DAILY 05/19/18 05/25/18 History sennosides-docusate sodium 1 tab PO DAILY PRN #10 tab 05/22/18 05/25/18 Rx [Senokot-S] acetaminophen [Mapap 650 mg PO Q4H PRN 05/25/18 05/25/18 History (acetaminophen)] ibuprofen [Motrin IB] 200 - 800 mg PO DIRECTED PRN 05/25/18 05/25/18 History Patient History Medical History Elevated LFTs (Acute) Gallstone (Acute) Depression GERD (gastroesophageal reflux disease) Hepatitis Social History marital status: Current Living Situation: Spouse Other Information That Helps Us Care for You: No Feels Safe at Home: Yes Safety Concerns: Feels Safe At This Time Smoking Status: Current every day smoker Tobacco Type: cigarettes Cigarettes per Day: 10 Do You Dip or Chew Tobacco: No Hx Alcohol Use: No Hx Substance Use: No Beliefs That Will Affect Care: None Communication Ability: Effective Review of Systems Constitutional: + fever, + chills, + body aches and + fatigue Respiratory: no cough, no chest congestion and no dyspnea Cardiovascular: no chest pain, no dyspnea, no syncope and no edema Gastrointestinal: + abdominal pain, + nausea and + diarrhea/loose stools Genitourinary (Male): no dysuria Neurologic: no tremor(s), no syncope and no confusion Psychiatric: no depression, no irritability and no anxiety Physical Exam 2 Vital Signs (Past 24 Hours): Last Vital Signs Temp 37.0 C 05/25/18 22:58 Pulse 90 05/25/18 22:58 Resp 20 05/25/18 22:58 BP 110/67 05/25/18 22:58 Pulse Ox 94 05/25/18 22:58 Constitutional: well developed, well nourished, + acute distress (with diffuse body aches), + ill appearing and average body habitus Neck: trachea midline, no thyromegaly Respiratory: normal respiratory effort, lungs clear to auscultation Cardiovascular: RRR, no murmur, no edema Gastrointestinal (Abdomen): normal bowel sounds, soft, nontender, no hepatosplenomegaly (incisional dressings dry & intact) Skin: no jaundice Psychiatric: A+Ox3, euthymic affect Results & Data Laboratory Results See HPI Diagnostic Findings CT with IV contrast 05/25: There are postoperative changes from interval cholecystectomy when compared to 05/19/2018. 2. There is trace fluid and stranding within the gallbladder fossa. No organized fluid collection is identified and this is likely expected postoperative change. 3. Intraperitoneal free air is nonspecific and likely related to recent surgery. 4. There is no significant intrahepatic biliary ductal dilatation. 5. There is mild wall thickening and enhancement of the common bile duct. This is nonspecific and likely related to recent surgery. Superimposed infection would be impossible to exclude. Clinical correlation will be required. 6. Trace free fluid is seen in the pelvis. 7. There is moderate colonic diverticulosis without CT evidence of acute diverticulitis. 8. Additional findings as above.
[2018-05-26] MEDS: PANTOprazole 40 MG TAB PO SCH ×2 (10:23→21:26)
--- NOTE | 2018-05-26 12:09 | Surgery Progress Note ---
Date of Service May 26, 2018 Assessment & Plan (1) Cholangitis: POD # 5 s/p laparoscopic cholecystectomy with IOC showing no filling defects who presented to emergency department yesterday with fever, nausea, vomiting, abdominal pain and diarrhea. CT scan showing distended CBD and elevated leukocytosis at 20K and elevated t. bili at 3.0 and LFTS. Going for ERCP today Plan: Continue IV abx, IV pain management as needed, IV Zofran prn nausea, IV Fluids Will await results of ERCP this afternoon Keep NPO Dr. Giron has seen patient, agrees with above Subjective feeling gross, hasn't showered since last Saturday + nausea + diarrhea not much abdominal pain present at bedside, going for ERCP around 1 pm today Physical Exam 2 Vital Signs (Past 24 Hours): Last Vital Signs Temp 36.9 C 05/26/18 10:03 Pulse 109 H 05/26/18 10:03 Resp 18 05/26/18 10:03 BP 112/68 05/26/18 10:03 Pulse Ox 93 05/26/18 10:03 Constitutional: WD/WN, vitals as above no acute distress and not ill appearing Neck: trachea midline Respiratory: normal respiratory effort; no respiratory distress, no labored breathing, no retractions and does not use accessory muscles Skin: no rashes, warm and dry Psychiatric: A+Ox3, euthymic affect Results & Data Laboratory Results 05/26/18 05/26/18 05/26/18 Range/Units 10:00 05:30 05:30 WBC 22.12 H (4.8-10.8) K/uL RBC 4.56 L (4.7-6.1) M/uL Hgb 14.2 (14.0-18.0) g/dL Hct 42.0 (42-52) % MCV 92.1 (80-100) fL MCH 31.1 (25-34) pg MCHC 33.8 (32-36) g/dL RDW Std Deviation 48.9 H (36.4-46.3) fL RDW Coeff of Angela 14.5 (11.5-14.5) % Plt Count 229 (130-400) K/uL MPV 10.5 H (7.4-10.4) fL Immature Gran % (Auto) 0.3 % Neut % (Auto) 90.1 % Lymph % (Auto) 4.7 % [place] % (Auto) 4.5 % Eos % (Auto) 0.2 % Baso % (Auto) 0.2 % Immature Gran # (Auto) 0.06 H (0.00-0.02) K/uL Neut # (Auto) 19.96 H (1.4-6.5) K/uL Lymph # (Auto) 1.03 L (1.2-3.4) K/uL [place] # (Auto) 0.99 H (0.11-0.59) K/uL Eos # (Auto) 0.04 (0-0.5) K/uL Baso # (Auto) 0.04 (0-0.2) K/uL Sodium 136 (136-145) mmol/L Potassium 4.3 D (3.5-5.1) mmol/L Chloride 108 H (98-107) mmol/L Carbon Dioxide 22 (21-32) mmol/L Anion Gap 6.0 (3-11) BUN 15 (7-18) mg/dl Creatinine 1.16 (0.6-1.4) mg/dl Est Cr Clr Drug Dosing 78.2 ml/min Est GFR ( Amer) 78.9 Est GFR (Non-Af Amer) 68.1 BUN/Creatinine Ratio 12.5 (10-20) Glucose 105 H (70-99) mg/dl Lactate (0.4-2.0) mmol/L Calcium 9.1 (8.5-10.1) mg/dl Magnesium 2.2 (1.8-2.4) mg/dl Total Bilirubin 1.5 H (0.2-1) mg/dl Direct Bilirubin 1.1 H (0-0.2) mg/dl AST 132 H (15-37) U/L ALT 267 H (12-78) U/L Alkaline Phosphatase 363 H (45-117) U/L Total Protein 7.0 (6.4-8.2) gm/dl Albumin 3.2 L (3.4-5.0) gm/dl Globulin 3.8 (2.5-4.0) gm/dl Albumin/Globulin Ratio 0.8 L (0.9-2) Lipase 66 L (73-393) U/L TSH (0.300-4.500) uIu/ml Urine Color Urine Appearance (Clear) Urine pH (4.5-7.5) Ur Specific [place] (1.000-1.030) Urine Protein (Negative) Urine Glucose (UA) (Negative) Urine Ketones (Negative) Urine Blood (Negative) Urine Nitrite (Negative) Urine Bilirubin (Negative) Urine Urobilinogen (Negative) Ur Leukocyte Esterase (Negative) Urine WBC (Auto) (0-5) /hpf Urine RBC (Auto) (0-4) /hpf U Hyaline Cast (Auto) (0-5) /lpf U Epithel Cells (Auto) (0-5) /lpf Urine Bacteria (Auto) (Negative) Stl C. diff Tox B Gene Pending 05/25/18 05/25/18 05/25/18 Range/Units 20:48 20:48 17:55 WBC (4.8-10.8) K/uL RBC (4.7-6.1) M/uL Hgb (14.0-18.0) g/dL Hct (42-52) % MCV (80-100) fL MCH (25-34) pg MCHC (32-36) g/dL RDW Std Deviation (36.4-46.3) fL RDW Coeff of Angela (11.5-14.5) % Plt Count (130-400) K/uL MPV (7.4-10.4) fL Immature Gran % (Auto) % Neut % (Auto) % Lymph % (Auto) % [place] % (Auto) % Eos % (Auto) % Baso % (Auto) % Immature Gran # (Auto) (0.00-0.02) K/uL Neut # (Auto) (1.4-6.5) K/uL Lymph # (Auto) (1.2-3.4) K/uL [place] # (Auto) (0.11-0.59) K/uL Eos # (Auto) (0-0.5) K/uL Baso # (Auto) (0-0.2) K/uL Sodium (136-145) mmol/L Potassium (3.5-5.1) mmol/L Chloride (98-107) mmol/L Carbon Dioxide (21-32) mmol/L Anion Gap (3-11) BUN (7-18) mg/dl Creatinine (0.6-1.4) mg/dl Est Cr Clr Drug Dosing ml/min Est GFR ( Amer) Est GFR (Non-Af Amer) BUN/Creatinine Ratio (10-20) Glucose (70-99) mg/dl Lactate 1.4 (0.4-2.0) mmol/L Calcium (8.5-10.1) mg/dl Magnesium 1.6 L (1.8-2.4) mg/dl Total Bilirubin (0.2-1) mg/dl Direct Bilirubin (0-0.2) mg/dl AST (15-37) U/L ALT (12-78) U/L Alkaline Phosphatase (45-117) U/L Total Protein (6.4-8.2) gm/dl Albumin (3.4-5.0) gm/dl Globulin (2.5-4.0) gm/dl Albumin/Globulin Ratio (0.9-2) Lipase (73-393) U/L TSH 0.433 (0.300-4.500) uIu/ml Urine Color [place] Urine Appearance Clear (Clear) Urine pH 6.0 (4.5-7.5) Ur Specific [place] 1.035 H (1.000-1.030) Urine Protein 1+ H (Negative) Urine Glucose (UA) Negative (Negative) Urine Ketones Trace H (Negative) Urine Blood Negative (Negative) Urine Nitrite Positive H (Negative) Urine Bilirubin 3+ H (Negative) Urine Urobilinogen Negative (Negative) Ur Leukocyte Esterase 1+ H (Negative) Urine WBC (Auto) 1-5 (0-5) /hpf Urine RBC (Auto) 0-4 (0-4) /hpf U Hyaline Cast (Auto) 5-10 H (0-5) /lpf U Epithel Cells (Auto) 20-30 H (0-5) /lpf Urine Bacteria (Auto) Negative (Negative) Stl C. diff Tox B Gene 05/25/18 05/25/18 Range/Units 17:48 17:48 WBC 20.08 H (4.8-10.8) K/uL RBC 4.84 (4.7-6.1) M/uL Hgb 15.0 (14.0-18.0) g/dL Hct 43.7 (42-52) % MCV 90.3 (80-100) fL MCH 31.0 (25-34) pg MCHC 34.3 (32-36) g/dL RDW Std Deviation 46.4 H (36.4-46.3) fL RDW Coeff of Angela 14.0 (11.5-14.5) % Plt Count 204 (130-400) K/uL MPV 10.6 H (7.4-10.4) fL Immature Gran % (Auto) 0.4 % Neut % (Auto) 90.9 % Lymph % (Auto) 2.1 % Mclennan % (Auto) 6.6 % Eos % (Auto) 0.0 % Baso % (Auto) 0.0 % Immature Gran # (Auto) 0.08 H (0.00-0.02) K/uL Neut # (Auto) 18.23 H (1.4-6.5) K/uL Lymph # (Auto) 0.42 L (1.2-3.4) K/uL [place] # (Auto) 1.33 H (0.11-0.59) K/uL Eos # (Auto) 0.01 (0-0.5) K/uL Baso # (Auto) 0.01 (0-0.2) K/uL Sodium 136 (136-145) mmol/L Potassium 3.7 (3.5-5.1) mmol/L Chloride 104 (98-107) mmol/L Carbon Dioxide 25 (21-32) mmol/L Anion Gap 7.0 (3-11) BUN 15 (7-18) mg/dl Creatinine 1.07 (0.6-1.4) mg/dl Est Cr Clr Drug Dosing 84.8 ml/min Est GFR ( Amer) 87.0 Est GFR (Non-Af Amer) 75.1 BUN/Creatinine Ratio 14.4 (10-20) Glucose 115 H (70-99) mg/dl Lactate (0.4-2.0) mmol/L Calcium 8.9 (8.5-10.1) mg/dl Magnesium (1.8-2.4) mg/dl Total Bilirubin 3.0 H (0.2-1) mg/dl Direct Bilirubin (0-0.2) mg/dl AST 221 H (15-37) U/L ALT 319 H (12-78) U/L Alkaline Phosphatase 431 H (45-117) U/L Total Protein 7.4 (6.4-8.2) gm/dl Albumin 3.5 (3.4-5.0) gm/dl Globulin 3.9 (2.5-4.0) gm/dl Albumin/Globulin Ratio 0.9 (0.9-2) Lipase 81 (73-393) U/L TSH (0.300-4.500) uIu/ml Urine Color Urine Appearance (Clear) Urine pH (4.5-7.5) Ur Specific [place] (1.000-1.030) Urine Protein (Negative) Urine Glucose (UA) (Negative) Urine Ketones (Negative) Urine Blood (Negative) Urine Nitrite (Negative) Urine Bilirubin (Negative) Urine Urobilinogen (Negative) Ur Leukocyte Esterase (Negative) Urine WBC (Auto) (0-5) /hpf Urine RBC (Auto) (0-4) /hpf U Hyaline Cast (Auto) (0-5) /lpf U Epithel Cells (Auto) (0-5) /lpf Urine Bacteria (Auto) (Negative) Stl C. diff Tox B Gene
--- NOTE | 2018-05-26 12:48 | History & Physical Bridge Note ---
Date of Service May 26, 2018 History & Physical Bridge Note I have examined the patient, reviewed the History & Physical and in the interval since the performance of the History & Physical I have noted the following changes of clinical significance: no changes noted
--- NOTE | 2018-05-26 12:56 | Anesthesiology Consultation ---
Date of Service May 26, 2018 GERD Smoker Assessment & Plan (1) Encounter for pre-operative examination: Chart Review Chart Review: Acceptable Risk for Surgery and Patient NOT seen in Pre Admission Testing Consults Requested none ASA ASA2 Proposed Anesthesia Anesthesia Type: General Risk / Benefits Reviewed With: PT / POA / Parent / Guardian, Accepts Plan and Informed Consent Obtained NPO Date Last Intake of Fluids: 05/25/18 Time Last Intake of Fluids: 08:00 Last Intake of Fluids Comment: sips w/ am meds Date Last Intake of Solids: 05/25/18 Time Last Intake of Solids: 08:00 History Surgery Operation Date: 05/26/18 09:10 Proposed Procedures p Endoscopic Retrograde Cholangiopancreatogram - Cat Orlando Height/Weight Height: 5 ft 11 in Weight: 91.1 kg Allergies Allergy/AdvReac Type Severity Reaction Status Date / Time Sulfa (Sulfonamide Allergy Unknown HAPPENED Verified 05/25/18 18:17 Antibiotics) A CHILD Medications Home Medications Medication Instructions Recorded Confirmed Last Taken pantoprazole 40 mg PO BID 05/19/18 05/25/18 05/25/18 08:00 sertraline 100 mg PO DAILY 05/19/18 05/25/18 05/25/18 sennosides-docusate sodium 1 tab PO DAILY PRN #10 tab 05/22/18 05/25/18 Unknown [Senokot-S] acetaminophen [Mapap 650 mg PO Q4H PRN 05/25/18 05/25/18 05/25/18 13:00 (acetaminophen)] ibuprofen [Motrin IB] 200 - 800 mg PO DIRECTED PRN 05/25/18 05/25/18 08:00 800 MG Active Medications Generic Name Dose Route Start Last Admin Trade Name Freq PRN Reason Stop Dose Admin Promethazine HCl 12.5 mg/ 50.5 mls @ 204 mls/hr 05/25/18 19:47 05/25/18 23:49 Sodium Chloride IV 06/24/18 19:46 Infused Q6H PRN Infusion Nausea And Vomiting Potassium Chloride/Sodium Chloride 20 meq in 1,000 mls @ 125 mls/hr 05/25/18 22:30 05/26/18 07:20 Normal Saline W/20 Meq Kcl IV 06/24/18 22:29 125 mls/hr .Q8H SUZETTE Infusion Piperacillin Sod/Tazobactam 115 mls @ 28.75 mls/hr 05/26/18 02:00 05/26/18 09 :12 Sod 3.375 gm/ Dextrose IV 06/04/18 01:59 28.8 mls/hr Q8H SUZETTE Administration Protocol Ioversol 120 ml 05/25/18 18:58 05/25/18 18:58 Optiray 320 125ml IV 05/29/18 18:57 120 ml ONCE PRN Administration Interaction Checking Ondansetron HCl 4 mg 05/25/18 19:47 05/25/18 20:57 Zofran IV 06/24/18 19:46 4 mg Q3HWA PRN Administration Nausea Pantoprazole Sodium 40 mg 05/25/18 21:00 05/26/18 10:23 Protonix PO 06/24/18 20:59 40 mg BID SUZETTE Administration Sertraline HCl 100 mg 05/26/18 09:00 05/26/18 09:04 Zoloft PO 06/25/18 08:59 100 mg DAILY SUZETTE Administration Past Medical History Medical History Elevated LFTs (Acute) Gallstone (Acute) Depression GERD (gastroesophageal reflux disease) Hepatitis Social History Smoking Status: Current every day smoker tobacco type: cigarettes Smoking cigarettes per day: 10 Do You Dip or Chew Tobacco: No Hx Alcohol Use: No Hx Substance Use: No substance use type: does not use Physical Exam Vital Signs Last Vital Signs Temp 36.8 C 05/26/18 12:50 Pulse 83 05/26/18 12:50 Resp 20 05/26/18 12:50 BP 108/74 05/26/18 12:50 Pulse Ox 96 05/26/18 12:50 ENMT Mouth: no TMJ abnormality Thyromental Distance: > or= 3.5 Finger Breadths Mallampati Class: II Neck normal visual inspection Respiratory normal respiratory effort Cardiovascular Rate/Rhythm: regular rate and regular rhythm Neurologic moves all extremities Psychiatric Orientation: alert Testing Laboratory Results 05/26/18 05:30 05/26/18 05:30 Urine Color [place] 05/25/18 17:55 Urine Appearance Clear (Clear) 05/25/18 17:55 Urine pH 6.0 (4.5-7.5) 05/25/18 17:55 Ur Specific [place] 1.035 (1.000-1.030) H 05/25/18 17:55 Urine Protein 1+ (Negative) H 05/25/18 17:55 Urine Glucose (UA) Negative (Negative) 05/25/18 17:55 Urine Ketones Trace (Negative) H 05/25/18 17:55 Urine Nitrite Positive (Negative) H 05/25/18 17:55 Ur Leukocyte Esterase 1+ (Negative) H 05/25/18 17:55 Urine WBC (Auto) 1-5 /hpf (0-5) 05/25/18 17:55 Urine RBC (Auto) 0-4 /hpf (0-4) 05/25/18 17:55 U Hyaline Cast (Auto) 5-10 /lpf (0-5) H 05/25/18 17:55 U Epithel Cells (Auto) 20-30 /lpf (0-5) H 05/25/18 17:55 Urine Bacteria (Auto) Negative (Negative) 05/25/18 17:55 05/25/18 17:55 Urine Culture - Preliminary Urine,Clean Catch No growth - Less than 1,000 colonies/mL, Final report to follow.
[2018-05-26] MEDS ORDERED: ePHEDrine sulfate 50 MG/ML AMP IV PRN (12:57)
[2018-05-26] MEDS ORDERED: ONDANSETRON INJ 2 MG/ML 2 ML VIAL IV PRN (12:57)
[2018-05-26] MEDS ORDERED: ATROPINE SULFATE 0.1 MG/ML 10ML SYR IV PRN (12:57)
[2018-05-26] MEDS ORDERED: PROMETHAZINE HCL 6.25 MG in SODIUM CHLORIDE 0.9% 50 ML IV PRN (12:57)
[2018-05-26] MEDS ORDERED: fentaNYL citrate 100 MCG/2 ML VIAL IV PRN (12:57)
[2018-05-26] MEDS ORDERED: fentaNYL citrate 100 MCG/2 ML VIAL ONE (13:00)
[2018-05-26] MEDS ORDERED: INDOMETHACIN 50 MG SUPP PR ONE ×2 (13:12→13:13)
[2018-05-26] MEDS ORDERED: LIDOCAINE HCL 2% 2 ML VIAL/AMP(20MG/ML) INFIL ONE (13:16)
[2018-05-26] MEDS ORDERED: ONDANSETRON INJ 2 MG/ML 2 ML VIAL ONE (13:16)
[2018-05-26] MEDS ORDERED: SUCCINYLCHOLINE CHLORIDE 20 MG/ML 10 ML VIAL ONE (13:16)
[2018-05-26] MEDS ORDERED: DEXAMETHASONE SOD INJ 4 MG/ML VIAL ONE (13:16)
[2018-05-26] MEDS ORDERED: PROPOFOL IV EMULSION 10 MG/ML 20 ML VIAL IV ONE (13:16)
--- NOTE | 2018-05-26 13:41 | GI REPORT ---
Patient Name: Massimo Maxwell Procedure Date: 05/26/2018 1:10 PM Date of : 1955 Admit Type: Inpatient Age: 62 Gender: Male Attending MD: Cat Orlando DO Procedure: ERCP Providers: Cat Orlando DO Referring MD: Vinh Coffman Md, Noé Bardales MD Indications: Abdominal pain of suspected biliary origin, Suspected ascending cholangitis Medicines: General Anesthesia, Indomethacin 100 mg AL Complications: No immediate complications. Estimated blood loss: Minimal. Estimated Blood Loss: Estimated blood loss was minimal. Procedure: Pre-Anesthesia Assessment: - Prior to the procedure, a History and Physical was performed, and patient medications, allergies and sensitivities were reviewed. The patient's tolerance of previous anesthesia was reviewed. - The risks and benefits of the procedure and the sedation options and risks were discussed with the patient. All questions were answered and informed consent was obtained. - Patient identification and proposed procedure were verified prior to the procedure by the physician, the nurse and the splicing supervisor. The procedure was verified in the procedure room. - Pre-procedure physical examination revealed no contraindications to sedation. - ASA Grade Assessment: II - A patient with mild systemic disease. - After reviewing the risks and benefits, the patient was deemed in satisfactory condition to undergo the procedure. - The anesthesia plan was to use general anesthesia. - Immediately prior to administration of medications, the patient was re-assessed for adequacy to receive sedatives. - The heart rate, respiratory rate, oxygen saturations, blood pressure, adequacy of pulmonary ventilation, and response to care were monitored throughout the procedure. - The physical status of the patient was re-assessed after the procedure. After obtaining informed consent, the scope was passed under direct vision. Throughout the procedure, the patient's blood pressure, pulse, and oxygen saturations were monitored continuously. The SCOPE was introduced through the mouth, and advanced to the duodenum and used to inject contrast into the dorsal pancreatic duct. The ERCP was accomplished without difficulty. The patient tolerated the procedure well. Findings: A esl tutor film of the abdomen was obtained. Surgical clips, consistent with a previous cholecystectomy, were seen in the area of the right upper quadrant of the abdomen. The total fluoroscopy exposure time was 1 minute and 25 seconds. The major papilla was congested. The bile duct was deeply cannulated with the short-nosed traction sphincterotome and guidewire. Contrast was injected. I personally interpreted the bile duct images. Contrast extended to the entire biliary tree. A cholecystectomy had been performed. The main bile duct was moderately dilated. The largest diameter was 9 mm. The lower third of the main bile duct contained a single mild stenosis 5 mm in length. Biliary sphincterotomy was made with a monofilament Fusion OMNI sphincterotome using ERBE electrocautery. There was no post-sphincterotomy bleeding. To discover objects, the biliary tree was swept with a 8.5 to 15 mm balloon starting at the bifurcation. Sludge was swept from the duct. A small amount of pus was swept from the duct. One 10 Fr by 7 cm biliary stent with a single external flap and a single internal flap was placed 7 cm into the common bile duct. Bile flowed through the stent. The stent was in good position. The endoscope was withdrawn from the patient. Impression: - The major papilla appeared congested. - A single mild biliary stricture was found at the intraduodenal segment of the bile duct. The stricture was inflammatory appearing. - The entire main bile duct was moderately dilated. - The patient has had a cholecystectomy. - A biliary sphincterotomy was performed. - The biliary tree was swept and sludge and pus were found. - One biliary stent was placed into the common bile duct. Recommendation: - Return patient to [facility] for ongoing care. - Clear liquid diet today. - Observe patient's clinical course following today's ERCP with therapeutic intervention. - Repeat ERCP in 6 weeks to remove stent. - Would also recomend treatment of underlying C diff infection (defer to primary GI service) Cat Orlando D.O. Cat Orlando DO 05/26/2018 1:40:21 PM This report has been signed electronically. Note Initiated On: 05/26/2018 1:10 PM Number of Addenda: 0 I attest to the content of the Intraoperative Record and orders documented therein, exceptions below {[id number]}
--- NOTE | 2018-05-26 13:41 | Post Operative Brief Note ---
Immediate Post Op Note v1 Date of Surgery May 26, 2018 Pre & Post Diagnosis Operation Date: 05/26/18 09:10 Pre-Op Diagnosis: CHOLANGITIS Post-Op Diagnosis: CHOLANGITIS Procedure Operation Date: 05/26/18 09:10 Actual Procedures p Endoscopic Retrograde Cholangiopancreatogram - Cat Orlando Surgeon Cat Orlando [employer] none Estimated Blood Loss 0 Findings Consistent with Post-Op Diagnosis
--- NOTE | 2018-05-26 14:14 | Fluoroscopy Report ---
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 FINDINGS: Endoscope noted within the duodenum. Cannulation of the common bile duct. Contrast opacification of t he common bile duct and intrahepatic biliary tree demonstrates no stricturing or focal filling defect s. Spilling of contrast noted into the duodenum. Cholecystectomy clips are noted. No contrast extrava sation identified. IMPRESSION: Fluoroscopic assistance as above. Please see procedural report for further details. The above report was generated using voice recognition software. It may contain grammatical, syntax o r spelling errors. Electronically signed by: Siddharth Eason M.D. 05/26/2018 2:13 PM
--- NOTE | 2018-05-26 14:17 | Anesthesiology Progress Note ---
Date of Service May 26, 2018 Anesthesia Post Procedure Vital Signs Vital Signs: Temp Pulse Pulse Pulse Resp BP BP 05/26/18 14:05 82 19 119/79 05/26/18 13:55 89 18 107/78 05/26/18 13:45 37.0 C 82 12 109/80 05/26/18 12:50 36.8 C 83 20 108/74 05/26/18 10:03 36.9 C 109 H 18 112/68 05/25/18 22:58 37.0 C 90 20 110/67 05/25/18 22:13 99 H 05/25/18 20:31 37.5 C 136 H 16 124/78 05/25/18 20:20 37.1 C 103 H 16 101/52 L 05/25/18 17:36 05/25/18 17:20 36.4 C L 132 H 20 100/68 Pulse Ox 05/26/18 14:05 100 05/26/18 13:55 98 05/26/18 13:45 99 05/26/18 12:50 96 05/26/18 10:03 93 05/25/18 22:58 94 05/25/18 22:13 05/25/18 20:31 96 05/25/18 20:20 98 05/25/18 17:36 94 05/25/18 17:20 95 Pain Intensity Abdomen: Pain Intensity: 3 Notes Mental Status: alert / awake / arousable Patient Amnestic to Procedure: Yes Nausea / Vomiting: adequately controlled Pain: adequately controlled Airway Patency, RR, SpO2: stable & adequate BP & HR: stable & adequate Hydration State: stable & adequate Anesthetic Complications: no major complications apparent
--- NOTE | 2018-05-26 15:10 | Infectious Disease Consult ---
Date of Consultation May 26, 2018 Assessment & Plan (1) Cholangitis: 62-year-old male with acute cholangitis following cholecystectomy, now status post ERCP with finding of purulent material and stricture which was dilated. Pending further culture results, Zosyn should provide adequate coverage. Await C. difficile PCR which should be available sometime today. Will follow. (2) Diarrhea: History of Present Illness Reason for Consultation: Cholangitis, possible C. difficile Attending Physician: Aileen Stacy MD History of Present Illness 62-year-old male with history of depression otherwise in good health, was recently admitted with abdominal pain and found to have evidence of biliary tract disease and underwent laparoscopic cholecystectomy. He was discharged home, but readmitted yesterday with worsening abdominal pain with evidence of biliary obstruction and possible cholangitis. He was started empirically on IV Zosyn. He has now undergone ERCP with finding of purulent secretions and small stricture which was dilated. His pain has improved, currently 2/10 in intensity right upper quadrant. Having some diarrhea, C difficile PCR and cultures are pending. Allergies Allergy/AdvReac Type Severity Reaction Status Date / Time Sulfa (Sulfonamide Allergy Unknown HAPPENED Verified 05/25/18 18:17 Antibiotics) A CHILD Home Medications Home Medications Medication Instructions Recorded Confirmed Type pantoprazole 40 mg PO BID 05/19/18 05/25/18 History sertraline 100 mg PO DAILY 05/19/18 05/25/18 History sennosides-docusate sodium 1 tab PO DAILY PRN #10 tab 05/22/18 05/25/18 Rx [Senokot-S] acetaminophen [Mapap 650 mg PO Q4H PRN 05/25/18 05/25/18 History (acetaminophen)] ibuprofen [Motrin IB] 200 - 800 mg PO DIRECTED PRN 05/25/18 05/25/18 History Patient History Medical History Elevated LFTs (Acute) Depression GERD (gastroesophageal reflux disease) Hepatitis Social History marital status: Current Living Situation: Spouse Other Information That Helps Us Care for You: No Feels Safe at Home: Yes Safety Concerns: Feels Safe At This Time Smoking Status: Current every day smoker Tobacco Type: cigarettes Cigarettes per Day: 10 Do You Dip or Chew Tobacco: No Hx Alcohol Use: No Hx Substance Use: No Beliefs That Will Affect Care: None Communication Ability: Effective Review of Systems All systems were reviewed and are negative except as per HPI Physical Exam 2 Vital Signs (Past 24 Hours): Last Vital Signs Temp 36.2 C L 05/26/18 14:15 Pulse 74 05/26/18 14:15 Resp 15 05/26/18 14:15 BP 113/76 05/26/18 14:15 Pulse Ox 96 05/26/18 14:15 Constitutional: WD/WN, vitals as above comfortable; no acute distress Eyes: PERRL, conjunctivae normal, anicteric sclerae ENMT: external ear and nose normal, oropharynx normal Neck: trachea midline, no thyromegaly neck nontender Respiratory: normal respiratory effort, lungs clear to auscultation normal percussion; does not use accessory muscles Cardiovascular: Rate/Rhythm: regular rate and regular rhythm Heart Sounds: normal S1 and normal S2; no gallop, no murmur and no cardiac rub Vessels: normal peripheral pulses; no JVD Gastrointestinal (Abdomen): Inspection/Auscultation: abdomen normal to inspection and normal bowel sounds Percussion/Palpation: + abdomen tender ( Mild right upper quadrant without guarding) and abdomen soft; no hepatosplenomegaly and no abdominal mass Musculoskeletal: no cyanosis or clubbing, extremities motor strength 5/5 Spine: thoracic spine normal to inspection and lumbar spine normal to inspection ; no cervical spinal tenderness Skin: no rashes, warm and dry normal turgor; no lesions Neurologic: patellar DTR's 2+ bilat, sensation intact no focal motor deficits Psychiatric: A+Ox3, euthymic affect Orientation: cooperative Lymphatic: no cervical or axillary lymphadenopathy no inguinal lymphadenopathy Results & Data Laboratory Results Short CBC 05/25/18 05/26/18 Range/Units 17:48 05:30 WBC 20.08 H 22.12 H (4.8-10.8) K/uL Hgb 15.0 14.2 (14.0-18.0) g/dL Hct 43.7 42.0 (42-52) % Plt Count 204 229 (130-400) K/uL BMP 05/25/18 05/26/18 17:48 05:30 Sodium 136 136 Potassium 3.7 4.3 D Chloride 104 108 H Carbon Dioxide 25 22 BUN 15 15 Creatinine 1.07 1.16 Glucose 115 H 105 H Calcium 8.9 9.1 Liver Function 05/25/18 05/26/18 Range/Units 17:48 05:30 Total Bilirubin 3.0 H 1.5 H (0.2-1) mg/dl Direct Bilirubin 1.1 H (0-0.2) mg/dl AST 221 H 132 H (15-37) U/L ALT 319 H 267 H (12-78) U/L Alkaline Phosphatase 431 H 363 H (45-117) U/L Albumin 3.5 3.2 L (3.4-5.0) gm/dl Urine 05/25/18 Range/Units 17:55 Urine Color [place] Urine Appearance Clear (Clear) Urine pH 6.0 (4.5-7.5) Ur Specific [place] 1.035 H (1.000-1.030) Urine Protein 1+ H (Negative) Urine Glucose (UA) Negative (Negative) Diagnostic Findings Microbiology 05/25/18 17:55 Urine,Clean Catch Urine Culture - Preliminary No growth - Less than 1,000 colonies/mL, Final report to follow. Patient: MASSIMO JIMAdmit Date: 05/25/18 MR#: [id number] Phy: Aileen Stacy MD Acct ID:[id number] Phy: Massimo Canchola MD(OTTO) Date: 1955Fam Phy: Aileen Stacy MD Age: 62Location: 3W Sex: M Room/Bed: [facility] cc: ~ DICTATED BY: Cat Orlando DO Patient Name: Massimo Jim Procedure Date: 05/26/2018 1:10 PM Date of : 1955 Admit Type: Inpatient Age: 62 Gender: Male Attending MD: Cat Orlando DO Procedure: ERCP Providers: Cat Orlando DO Referring MD: Vinh Coffman Md, Noé Bardales MD Indications: Abdominal pain of suspected biliary origin, Suspected ascending cholangitis Medicines: General Anesthesia, Indomethacin 100 mg MA Complications: No immediate complications. Estimated blood loss: Minimal. Estimated Blood Loss: Estimated blood loss was minimal. Procedure: Pre-Anesthesia Assessment: - Prior to the procedure, a History and Physical was performed, and patient medications, allergies and sensitivities were reviewed. The patient's tolerance of previous anesthesia was reviewed. - The risks and benefits of the procedure and the sedation options and risks were discussed with the patient. All questions were answered and informed consent was obtained. - Patient identification and proposed procedure were verified prior to the procedure by the physician, the nurse and the straw baler. The procedure was verified in the procedure room. - Pre-procedure physical examination revealed no contraindications to sedation. - ASA Grade Assessment: II - A patient with mild systemic disease. - After reviewing the risks and benefits, the patient was deemed in satisfactory condition to undergo the procedure. - The anesthesia plan was to use general anesthesia. - Immediately prior to administration of medications, the patient was re-assessed for adequacy to receive sedatives. - The heart rate, respiratory rate, oxygen saturations, blood pressure, adequacy of pulmonary ventilation, and response to care were monitored throughout the procedure. - The physical status of the patient was re-assessed after the procedure. After obtaining informed consent, the scope was passed under direct vision. Throughout the procedure, the patient's blood pressure, pulse, and oxygen saturations were monitored continuously. The SCOPE was introduced through the mouth, and advanced to the duodenum and used to inject contrast into the dorsal pancreatic duct. The ERCP was accomplished without difficulty. The patient tolerated the procedure well. Findings: A director data analytics film of the abdomen was obtained. Surgical clips, consistent with a previous cholecystectomy, were seen in the area of the right upper quadrant of the abdomen. The total fluoroscopy exposure time was 1 minute and 25 seconds. The major papilla was congested. The bile duct was deeply cannulated with the short-nosed traction sphincterotome and guidewire. Contrast was injected. I personally interpreted the bile duct images. Contrast extended to the entire biliary tree. A cholecystectomy had been performed. The main bile duct was moderately dilated. The largest diameter was 9 mm. The lower third of the main bile duct contained a single mild stenosis 5 mm in length. Biliary sphincterotomy was made with a monofilament Fusion OMNI sphincterotome using ERBE electrocautery. There was no post-sphincterotomy bleeding. To discover objects, the biliary tree was swept with a 8.5 to 15 mm balloon starting at the bifurcation. Sludge was swept from the duct. A small amount of pus was swept from the duct. One 10 Fr by 7 cm biliary stent with a single external flap and a single internal flap was placed 7 cm into the common bile duct. Bile flowed through the stent. The stent was in good position. The endoscope was withdrawn from the patient. Impression: - The major papilla appeared congested. - A single mild biliary stricture was found at the intraduodenal segment of the bile duct. The stricture was inflammatory appearing. - The entire main bile duct was moderately dilated. - The patient has had a cholecystectomy. - A biliary sphincterotomy was performed. - The biliary tree was swept and sludge and pus were found. - One biliary stent was placed into the common bile duct. Recommendation: - Return [facility] to [facility] for [facility] care. - Clear liquid diet today. - Observe patient's clinical course following today's ERCP with therapeutic intervention. - Repeat ERCP in 6 weeks to remove stent. - Would also recomend treatment of underlying C diff infection (defer to primary GI service) Cat Orlando D.O. Cat Orlando, 05/26/2018 1:40:21 PM This report has been signed electronically. Note Initiated On: 05/26/2018 1:10 PM Number of Addenda: 0 I attest to the content of the Intraoperative Record and orders documented therein, exceptions below {[id number]} Signed By:05/26/18 1340 Dictated: 05/26/18 1310 Transcribed: 05/26/18 1340Transcriptionist: ERASMO The status of this report is S
[2018-05-26] MEDS ORDERED: ACETAMINOPHEN 325 MG TAB PO PRN (15:20)
[2018-05-26] MEDS: metroNIDAZOLE 500 MG/100 ML BAG IV SCH ×2 (16:25→22:06)
[2018-05-26] MEDS: RASPBERRY SYRUP 5 ML UDP PO SCH (19:46)
[2018-05-26] MEDS: VANCOMYCIN HCL 125 MG/2.5ML SOLN PO SCH (19:46)
--- NOTE | 2018-05-26 23:35 | Hospitalist Progress Note ---
Date of Service May 26, 2018 Assessment & Plan (1) Sepsis: Final Assessment and Recommendations as follows : Sepsi secondary to Cholangitis s/p ERCP today continue Zosyn monitor LFTs C diff Colitis 1st episode Vanco po QID ordered monitor mood disorder, stable prediabetes, hemoglobin A1c of 5.9 during recent confinement ongoing tobacco abuse. Nicotine patch as needed DVT prophylaxis. SCDs as per General Surgery admission orders (Recommend pharmacologic anticoagulation with Lovenox 40 mg SQ daily once bleeding risk is deemed to be minimal and negligible by primary service.) Subjective ff up for cholangitis s/p ERCP today seen resting in bed, comfortable denies abdominal pain 3 episodes of diarrhea this afternoon no other symptoms Physical Exam 2 Vital Signs (Past 24 Hours): Last Vital Signs Temp 36.4 C L 05/26/18 23:00 Pulse 78 05/26/18 23:00 Resp 16 05/26/18 23:00 BP 114/63 05/26/18 23:00 Pulse Ox 96 05/26/18 23:00 Physical Exam: General- oriented x 3, not in distress, speaks in sentences with no effort or accessory muscle use Eyes- anicteric Neck- no JVD Lungs- clear BS BL no rales/wheezing Heart- normal rate, regular rhythm; no murmurs Abdomen- normal bowel sounds, nondistended, soft, nontender Extremities- no pretibial edema, no calf tenderness Neuro- alert, oriented x 3; no gross focal neurologic deficits Skin- warm & dry Results & Data Laboratory Results Laboratory Results - last 24 hr 05/26/18 05/26/18 05/26/18 05:30 05:30 10:00 WBC 22.12 H RBC 4.56 L Hgb 14.2 Hct 42.0 MCV 92.1 MCH 31.1 MCHC 33.8 RDW Std Deviation 48.9 H RDW Coeff of Angela 14.5 Plt Count 229 MPV 10.5 H Immature Gran % (Auto) 0.3 Neut % (Auto) 90.1 Lymph % (Auto) 4.7 [place] % (Auto) 4.5 Eos % (Auto) 0.2 Baso % (Auto) 0.2 Immature Gran # (Auto) 0.06 H Neut # (Auto) 19.96 H Lymph # (Auto) 1.03 L [place] # (Auto) 0.99 H Eos # (Auto) 0.04 Baso # (Auto) 0.04 Sodium 136 Potassium 4.3 D Chloride 108 H Carbon Dioxide 22 Anion Gap 6.0 BUN 15 Creatinine 1.16 Est Cr Clr Drug Dosing 78.2 Est GFR ( Amer) 78.9 Est GFR (Non-Af Amer) 68.1 BUN/Creatinine Ratio 12.5 Glucose 105 H Calcium 9.1 Magnesium 2.2 Total Bilirubin 1.5 H Direct Bilirubin 1.1 H AST 132 H ALT 267 H Alkaline Phosphatase 363 H Total Protein 7.0 Albumin 3.2 L Globulin 3.8 Albumin/Globulin Ratio 0.8 L Lipase 66 L Stl C. diff Tox B Gene Pos C.diff Toxin B A*
[2018-05-27] MEDS: NSS + 20MEQ KCL 20 MEQ/1,000 ML BAG IV SCH ×4 (00:01→23:48)
[2018-05-27] MEDS: PIPERACILLIN/TAZOBACTAM 3.375 GM in DEXTROSE 5% 100 ML IV SCH ×3 (02:33→18:14)
[2018-05-27] MEDS: VANCOMYCIN HCL 125 MG/2.5ML SOLN PO SCH ×5 (06:18→23:52)
[2018-05-27] MEDS: RASPBERRY SYRUP 5 ML UDP PO SCH ×5 (06:18→23:52)
[2018-05-27] MEDS: metroNIDAZOLE 500 MG/100 ML BAG IV SCH (06:19)
[2018-05-27 07:50] LABS: Basophils # (auto) 0.02 K/uL (0-0.2); Basophils % (auto) 0.1 %; Eosinophils # (auto) 0.18 K/uL (0-0.5); Eosinophils % (auto) 1.3 %; Hematocrit (blood only) 36.6 % (42-52); Immature Granulocytes # (auto) 0.04 K/uL (0.00-0.02); Immature Granulocytes % (auto) 0.3 %; Lymphocytes # (auto) 1.36 K/uL (1.2-3.4); Mean Corpuscular Hgb Conc 32.8 g/dL (32-36); Mean Corpuscular Volume 93.4 fL (80-100); Mean Platelet Volume 10.4 fL (7.4-10.4); Monocytes # (auto) 0.67 K/uL (0.11-0.59); Monocytes % (auto) 4.9 %; Neutrophils % (auto) 83.4 %; Platelet Count 193 K/uL (130-400); RDW Coefficient of Variation 14.7 % (11.5-14.5); RDW Standard Deviation 50.1 fL (36.4-46.3); Red Blood Count 3.92 M/uL (4.7-6.1); White Blood Count 13.57 K/uL (4.8-10.8)
[2018-05-27 08:21] LABS: Albumin Level 2.7 gm/dl (3.4-5.0); BUN Creatinine Ratio 14.7 (10-20); Calcium 8.3 mg/dl (8.5-10.1); Creatinine Clr Calc Pharmacy 101.9 ml/min; Est GFR (African American) 107.7; Est GFR (Non-African American) 92.9; Potassium 3.9 mmol/L (3.5-5.1)
--- NOTE | 2018-05-27 08:22 | Anesthesiology Progress Note ---
Date of Service May 27, 2018 Anesthesia Post Procedure Vital Signs Vital Signs: Temp Pulse Pulse Resp BP BP Pulse Ox 05/27/18 07:41 36.5 C 68 18 119/73 95 05/26/18 23:00 36.4 C L 78 16 114/63 96 05/26/18 17:43 36.7 C 78 18 116/81 96 05/26/18 16:48 36.7 C 74 17 109/75 96 05/26/18 16:15 36.9 C 84 18 104/78 96 05/26/18 15:14 36.9 C 77 17 107/71 94 05/26/18 14:25 37.0 C 78 16 109/73 95 05/26/18 14:15 36.2 C L 74 15 113/76 96 05/26/18 14:05 82 19 119/79 100 05/26/18 13:55 89 18 107/78 98 05/26/18 13:45 37.0 C 82 12 109/80 99 05/26/18 12:50 36.8 C 83 20 108/74 96 05/26/18 10:03 36.9 C 109 H 18 112/68 93 Pain Intensity Abdomen: Pain Intensity: 0 Notes Mental Status: alert / awake / arousable and participated in evaluation Patient Amnestic to Procedure: Yes Nausea / Vomiting: adequately controlled Pain: adequately controlled Airway Patency, RR, SpO2: stable & adequate BP & HR: stable & adequate Hydration State: stable & adequate Anesthetic Complications: no major complications apparent
[2018-05-27 08:25] LABS: Albumin Globulin Ratio 0.8 (0.9-2); Bilirubin,Total 0.6 mg/dl (0.2-1); Globulin 3.5 gm/dl (2.5-4.0); Total Protein 6.2 gm/dl (6.4-8.2)
[2018-05-27] MEDS: PANTOprazole 40 MG TAB PO SCH ×2 (09:14→21:26)
[2018-05-27] MEDS: SERTRALINE HCL 100 MG TABLET PO SCH (09:14)
--- NOTE | 2018-05-27 11:24 | Hospitalist Progress Note ---
Date of Service May 27, 2018 Assessment & Plan (1) Sepsis: (2) Cholangitis: Sepsis secondary to Cholangitis -S/p ERCP today on 05/26 with a single mild biliary stricture was found at the intraduodenal segment of the bile duct. The biliary tree was swept and sludge and pus were found. One biliary stent was placed into the common bile duct. -Continue Zosyn -Monitor LFTs-- downtrending appropriately -On clear liquid diet per primary service -Blood cultures without growth (3) C. difficile colitis: C diff tonix positive on 05/26/17 -1st episode of C diff -Had 8 episodes of diarrhea overnight -Continue Vanco PO QID (4) GERD (gastroesophageal reflux disease): Continue PPI (5) Depression: Stable. Continue Zoloft (6) Tobacco use disorder: Ongoing tobacco use. Nicotine patch as needed DVT Ppx: SCDs as per General Surgery admission orders (Recommend pharmacologic anticoagulation with Lovenox 40 mg SQ daily once bleeding risk is deemed to be minimal and negligible by primary service.) Dispo: Per primary service Patient seen in collaboration with Dr. Cui. Please see addendum. Supervising Physician Co-Signing Physician Notes Attending Addendum: delayed entry date of service as noted above care coordinated with LOVE Borrego please refer to her notes for full details, I agree with her notes patient seen and examined, records reviewed by myself as well on exam, patient seen resting in bed, comfortable denies abdominal pain, chills still has some diarrhea tolerating diet no other symptoms VS noted and reviewed oriented x3, not in distress, speaks in sentences with no effort nor accessory muscle use normal rate, regular rhythm, no murmurs clear breath sounds bilaterally non distended, soft, nontender no bipedal edema, erythema, warmth no neuro deficits WBC 13 Tot marcela 0.6 ASSESSMENT AND PLAN CHOLANGITIS S/P ERCP afebrile LFTs improving continue ZOsyn C DIFF COLITIS continuie Vanco and IV fluids other diagnoses and plan of care as per LOVE Borrego's notes Agustin Cui MD Subjective Patient seen and examined. S/p ERCP yesterday with biliary stent placement. Feeling much better today. Tolerating clear diet. Denies fever, chills, lightheadedness, chest pain or SOB. Experiencing nausea, abdominal bloating and diarrhea-- 6 episodes overnight. No abdominal pain. Physical Exam 2 Vital Signs (Past 24 Hours): Last Vital Signs Temp 36.8 C 05/27/18 11:00 Pulse 70 05/27/18 11:00 Resp 18 05/27/18 11:00 BP 113/78 05/27/18 11:00 Pulse Ox 96 05/27/18 11:00 Physical Exam: General Appearance: WD/WN, no apparent distress, resting comfortably Head: normocephalic, atraumatic Eyes: normal inspection, PERRL, EOMI ENT: hearing grossly normal, pharynx normal (moist mucous membranes) Neck: supple, no JVD, no adenopathy Respiratory/Chest: lungs clear to auscultation. No wheezes, rales or rhonci. No respiratory distress or accessory muscle use Cardiovascular: regular rate, rhythm, no murmur, normal peripheral pulses Abdomen/GI: normal bowel sounds, mild distention but soft, non-tender to palpation Extremities/Musculoskelatal: normal inspection, no calf tenderness, normal capillary refill, no pedal edema Neurologic/Psych: alert, normal mood/affect, oriented x 3 Skin: normal color, warm/dry Results & Data Laboratory Results Short CBC 05/27/18 Range/Units 07:21 WBC 13.57 H (4.8-10.8) K/uL Hgb 12.0 L (14.0-18.0) g/dL Hct 36.6 L (42-52) % Plt Count 193 (130-400) K/uL BMP 05/27/18 07:21 Sodium 139 Potassium 3.9 Chloride 108 H Carbon Dioxide 24 BUN 13 Creatinine 0.89 Glucose 97 Calcium 8.3 L Liver Function 05/27/18 Range/Units 07:21 Total Bilirubin 0.6 D (0.2-1) mg/dl AST 52 H (15-37) U/L ALT 164 H (12-78) U/L Alkaline Phosphatase 239 H (45-117) U/L Albumin 2.7 L (3.4-5.0) gm/dl Diagnostic Findings ERCP (05/26): Impression: The major papilla appeared congested. A single mild biliary stricture was found at the intraduodenal segment of the bile duct. The stricture was inflammatory appearing. - The entire main bile duct was moderately dilated - The patient has had a cholecystectomy. - A biliary sphincterotomy was performed. - The biliary tree was swept and sludge and pus were found. - One biliary stent was placed into the common bile duct.
[2018-05-27] MEDS ORDERED: POTASSIUM CHLORIDE 20 MEQ in SODIUM CHLORIDE 0.9% 1000ML 1,000 ML IV SCH ×2 (12:30→13:00)
--- NOTE | 2018-05-27 14:07 | Gastroenterology Progress Note ---
Date of Service May 27, 2018 Assessment & Plan (1) Cholangitis: 1. Continue vancomycin 125 4 times daily times a total of 3 weeks. 2. Continue antibiotics for cholangitis times a total of 10 days possibly either Augmentin or Cipro and Flagyl. 3. Clear liquid diet today, because tolerating we will plan to advance to regular diet tomorrow. (2) Diarrhea: 1. See above Supervising Physician Co-Signing Physician Notes Attending attestation I have seen, examined this patient, and agree with the findings and above by our mid-level provider Josafat Chowdhury [employer] DES[employer]. -Dramatically improved with c-diff treatment and s/p ERCP. -ID recommendations noted, would prefer at least 2 weeks of prolonged vancomycin after finishing treatment of cholangitis. -? is how long to treat the suspected cholangitis will defer to ID. Subjective Mr. Maxwell underwent laparoscopic cholecystectomy last week and returned with fever, leukocytosis and diarrhea on 05/25/2018. He underwent ERCP yesterday with sphincterotomy sweeping of the bile duct and placement of a stent. C. difficile was positive and he was started on vancomycin 125 4 times daily. He reports improvement in the frequency and consistency of the diarrhea today compared to yesterday. Constitutional: + body aches and + fatigue (Much improved); no fever and no chills No icterus Respiratory: no cough, no chest congestion and no dyspnea Gastrointestinal: + abdominal pain, + nausea and + diarrhea/loose stools (Some improvement) Neurologic: no unsteadiness, no localized weakness and no syncope Physical Exam 2 Vital Signs (Past 24 Hours): Last Vital Signs Temp 36.8 C 05/27/18 11:00 Pulse 70 05/27/18 11:00 Resp 18 05/27/18 11:00 BP 113/78 05/27/18 11:00 Pulse Ox 96 05/27/18 11:00 Constitutional: well developed, well nourished, + acute distress (with diffuse body aches), + ill appearing and average body habitus Neck: trachea midline, no thyromegaly Respiratory: normal respiratory effort, lungs clear to auscultation Cardiovascular: RRR, no murmur, no edema Gastrointestinal (Abdomen): Inspection/Auscultation: abdomen normal to inspection and normal bowel sounds; abdomen not distended Percussion/ Palpation: + abdomen tender and abdomen soft; no guarding and abdomen not rigid Skin: no jaundice Psychiatric: A+Ox3, euthymic affect
--- NOTE | 2018-05-27 15:02 | Infectious Disease Progress Nt ---
Date of Service May 27, 2018 Assessment & Plan (1) Cholangitis: Patient with cholangitis following cholecystectomy now status post ERCP and stent placement with improvement. Also with C difficile colitis. Would continue on Zosyn, consider changing to oral Augmentin near future. Continue vancomycin as outlined. Will follow. (2) C. difficile colitis: Subjective Patient seen in follow-up for cholangitis, as well as for C diff colitis. Feeling somewhat better, abdominal pain improved, no fever chills. Still with some diarrhea. Tolerating IV Zosyn. Now on oral vancomycin Review of Systems All systems reviewed & are unremarkable except as noted in HPI & below Physical Exam 2 Vital Signs (Past 24 Hours): Last Vital Signs Temp 36.8 C 05/27/18 11:00 Pulse 70 05/27/18 11:00 Resp 18 05/27/18 11:00 BP 113/78 05/27/18 11:00 Pulse Ox 96 05/27/18 11:00 Constitutional: WD/WN, vitals as above comfortable; no acute distress Eyes: PERRL, conjunctivae normal, anicteric sclerae ENMT: external ear and nose normal, oropharynx normal Neck: trachea midline, no thyromegaly neck nontender Respiratory: normal respiratory effort, lungs clear to auscultation normal percussion; no respiratory distress Cardiovascular: Rate/Rhythm: regular rate and regular rhythm Heart Sounds: normal S1 and normal S2; no gallop, no murmur and no cardiac rub Gastrointestinal (Abdomen): Inspection/Auscultation: abdomen normal to inspection and normal bowel sounds Percussion/Palpation: + abdomen tender ( Mild right upper quadrant) and abdomen soft; no guarding, no hepatosplenomegaly and no abdominal mass Musculoskeletal: no cyanosis or clubbing, extremities motor strength 5/5 No spinal tenderness, no joint swelling or erythema Skin: no rashes, warm and dry no lesions Neurologic: moves all extremities and awake; no focal motor deficits Motor/ Sensory: no sensory deficit Psychiatric: A+Ox3, euthymic affect Lymphatic: no cervical or axillary lymphadenopathy no inguinal lymphadenopathy Results & Data Laboratory Results Short CBC 05/27/18 Range/Units 07:21 WBC 13.57 H (4.8-10.8) K/uL Hgb 12.0 L (14.0-18.0) g/dL Hct 36.6 L (42-52) % Plt Count 193 (130-400) K/uL BMP 05/27/18 07:21 Sodium 139 Potassium 3.9 Chloride 108 H Carbon Dioxide 24 BUN 13 Creatinine 0.89 Glucose 97 Calcium 8.3 L Liver Function 05/27/18 Range/Units 07:21 Total Bilirubin 0.6 D (0.2-1) mg/dl AST 52 H (15-37) U/L ALT 164 H (12-78) U/L Alkaline Phosphatase 239 H (45-117) U/L Albumin 2.7 L (3.4-5.0) gm/dl Diagnostic Findings Microbiology 05/26/18 10:00 Stool Escherichia coli Shiga Toxins - Preliminary 05/26/18 10:00 Stool Stool Culture - Preliminary No Salmonella isolated to date, No Shigella isolated to date, No Campylobacter jejuni isolated to date. 05/25/18 17:55 Urine,Clean Catch Urine Culture - Final No growth - less than 1,000 colonies/mL. 05/25/18 20:48 Blood Blood Culture - Preliminary No growth to date. 05/25/18 20:37 Blood Blood Culture - Preliminary No growth to date.
--- NOTE | 2018-05-27 15:33 | Surgery Progress Note ---
Date of Service May 27, 2018 Assessment & Plan (1) Cholangitis: POD # 1 s/p ERCP with biliary sphincterotomy and biliary stent placement -Vitals stable, afebrile - leukocytosis improved to 13K (22K yesterday) - h&H stable - abdominal bloating and tenderness - no n/v - + C. diff with loose stools, improving Plan: Continue IV Zosyn and PO Vancomycin for now Continue clears and advance as tolerated Continue IV fluids Continue IV Zofran Continue SCDs, will add 40 mg SQ Lovenox daily now Encouraged ambulation and OOB to chair PO Tylenol prn pain Dr. Giron has seen and examined pt, agrees with above (2) C. difficile colitis: PO Vancoymcin QID repeat am labs Subjective feeling better than yesterday still having loose stools but decreased in frequency Abdominal bloating no n/v Physical Exam 2 Vital Signs (Past 24 Hours): Last Vital Signs Temp 36.8 C 05/27/18 11:00 Pulse 70 05/27/18 11:00 Resp 18 05/27/18 11:00 BP 113/78 05/27/18 11:00 Pulse Ox 96 05/27/18 11:00 Constitutional: WD/WN, vitals as above Neck: trachea midline Respiratory: normal respiratory effort; no respiratory distress Gastrointestinal (Abdomen): Inspection/Auscultation: + abdomen distended ( mildly) Percussion/Palpation: + abdomen tender (mild general abdominal tenderness) and abdomen soft; no guarding and abdomen not rigid Skin: no rashes, warm and dry + incision (clean/dry/intact with steri strips present) Psychiatric: A+Ox3, euthymic affect Results & Data Laboratory Results 05/27/18 05/27/18 Range/Units 07:21 07:21 WBC 13.57 H (4.8-10.8) K/uL RBC 3.92 L (4.7-6.1) M/uL Hgb 12.0 L (14.0-18.0) g/dL Hct 36.6 L (42-52) % MCV 93.4 (80-100) fL MCH 30.6 (25-34) pg MCHC 32.8 (32-36) g/dL RDW Std Deviation 50.1 H (36.4-46.3) fL RDW Coeff of Angela 14.7 H (11.5-14.5) % Plt Count 193 (130-400) K/uL MPV 10.4 (7.4-10.4) fL Immature Gran % (Auto) 0.3 % Neut % (Auto) 83.4 % Lymph % (Auto) 10.0 % [place] % (Auto) 4.9 % Eos % (Auto) 1.3 % Baso % (Auto) 0.1 % Immature Gran # (Auto) 0.04 H (0.00-0.02) K/uL Neut # (Auto) 11.30 H (1.4-6.5) K/uL Lymph # (Auto) 1.36 (1.2-3.4) K/uL [place] # (Auto) 0.67 H (0.11-0.59) K/uL Eos # (Auto) 0.18 (0-0.5) K/uL Baso # (Auto) 0.02 (0-0.2) K/uL Sodium 139 (136-145) mmol/L Potassium 3.9 (3.5-5.1) mmol/L Chloride 108 H (98-107) mmol/L Carbon Dioxide 24 (21-32) mmol/L Anion Gap 7.0 (3-11) BUN 13 (7-18) mg/dl Creatinine 0.89 (0.6-1.4) mg/dl Est Cr Clr Drug Dosing 101.9 ml/min Est GFR ( Amer) 107.7 Est GFR (Non-Af Amer) 92.9 BUN/Creatinine Ratio 14.7 (10-20) Glucose 97 (70-99) mg/dl Calcium 8.3 L (8.5-10.1) mg/dl Total Bilirubin 0.6 D (0.2-1) mg/dl AST 52 H (15-37) U/L ALT 164 H (12-78) U/L Alkaline Phosphatase 239 H (45-117) U/L Total Protein 6.2 L (6.4-8.2) gm/dl Albumin 2.7 L (3.4-5.0) gm/dl Globulin 3.5 (2.5-4.0) gm/dl Albumin/Globulin Ratio 0.8 L (0.9-2)
[2018-05-27] MEDS ORDERED: ENOXAPARIN INJ 40 MG/0.4 ML SYR SQ SCH (16:00)
[2018-05-27] MEDS: ONDANSETRON INJ 2 MG/ML 2 ML VIAL IV PRN (17:15)
[2018-05-28] MEDS: PIPERACILLIN/TAZOBACTAM 3.375 GM in DEXTROSE 5% 100 ML IV SCH ×2 (02:13→09:40)
[2018-05-28] MEDS: VANCOMYCIN HCL 125 MG/2.5ML SOLN PO SCH ×2 (06:14→12:33)
[2018-05-28] MEDS: RASPBERRY SYRUP 5 ML UDP PO SCH ×2 (06:14→12:33)
[2018-05-28 07:30] LABS: Hematocrit (blood only) 36.9 % (42-52); Hemoglobin 12.1 g/dL (14.0-18.0); Mean Corpuscular Hgb Conc 32.8 g/dL (32-36); Mean Corpuscular Volume 92.7 fL (80-100); Mean Platelet Volume 10.2 fL (7.4-10.4); Platelet Count 204 K/uL (130-400); RDW Coefficient of Variation 14.3 % (11.5-14.5); RDW Standard Deviation 48.5 fL (36.4-46.3); Red Blood Count 3.98 M/uL (4.7-6.1); White Blood Count 7.79 K/uL (4.8-10.8)
[2018-05-28 07:44] LABS: Partial Thromboplastin Time 25.7 Seconds (21.0-31.0); Prothrombin Time 10.4 Seconds (9.0-12.0)
[2018-05-28 08:00] LABS: Albumin Level 2.7 gm/dl (3.4-5.0); BUN Creatinine Ratio 8.5 (10-20); Calcium 8.2 mg/dl (8.5-10.1); Creatinine Clr Calc Pharmacy 93.5 ml/min; Est GFR (African American) 97.9; Est GFR (Non-African American) 84.5
[2018-05-28 08:03] LABS: Albumin Globulin Ratio 0.8 (0.9-2); Bilirubin,Total 0.5 mg/dl (0.2-1); Globulin 3.3 gm/dl (2.5-4.0)
[2018-05-28] MEDS: SERTRALINE HCL 100 MG TABLET PO SCH (09:39)
[2018-05-28] MEDS: NSS + 20MEQ KCL 20 MEQ/1,000 ML BAG IV SCH (09:39)
[2018-05-28] MEDS: PANTOprazole 40 MG TAB PO SCH (09:39)
--- NOTE | 2018-05-28 11:43 | Gastroenterology Progress Note ---
Date of Service May 28, 2018 Assessment & Plan (1) Cholangitis: Hx of cholangitis s/p ERCP, cdiff clinically improving Continue vancomycin 125 QID x 4 week Continue ABX for cholangitis would recommend ID evaluation for approp. ABX therapy Diet as tolerated GI to sign off. Thank you for allowing us to participate in the care of this patient. Please call with any acute changes, questions or concerns. Please see addendum below with additional recommendation from my supervising physician. (2) Diarrhea: Supervising Physician Co-Signing Physician Notes Attending attestation I have seen, examined this patient, and agree with the findings and above by our mid-level provider TANI Rayo. -Dramatically improved, stool is less frequent and more solidified. -Okay for discharge, will defer to ID for duration with an optimal oral antibiotic for potential cholangitis, will recommend that he prolong his vancomycin course at least by 2 weeks past the point of his treatment for cholangitis. -Follow-up with Dr. Orlando as an outpatient Subjective Pt was seen and evaluated, chart reviewed. Offers no complaints. Feels well. Wants to go home. Stool frequency is improving. Stools forming up. No fevers, chills, CP, SOB. Constitutional: no fever, no chills, no body aches and no fatigue (Much improved ) Gastrointestinal: no abdominal pain, no nausea and no diarrhea/loose stools ( Some improvement) Physical Exam 2 Vital Signs (Past 24 Hours): Last Vital Signs Temp 36.6 C 05/28/18 08:00 Pulse 61 05/28/18 08:00 Resp 16 05/28/18 08:00 BP 119/87 05/28/18 08:00 Pulse Ox 95 05/28/18 08:00 Constitutional: well nourished; no acute distress Respiratory: normal respiratory effort, lungs clear to auscultation Cardiovascular: RRR, no murmur, no edema Gastrointestinal (Abdomen): normal bowel sounds, soft, nontender, no hepatosplenomegaly Results & Data Laboratory Results 05/28/18 05/28/18 05/28/18 Range/Units 07:16 07:16 07:16 WBC 7.79 (4.8-10.8) K/uL RBC 3.98 L (4.7-6.1) M/uL Hgb 12.1 L (14.0-18.0) g/dL Hct 36.9 L (42-52) % MCV 92.7 (80-100) fL MCH 30.4 (25-34) pg MCHC 32.8 (32-36) g/dL RDW Std Deviation 48.5 H (36.4-46.3) fL RDW Coeff of Angela 14.3 (11.5-14.5) % Plt Count 204 (130-400) K/uL MPV 10.2 (7.4-10.4) fL PT 10.4 (9.0-12.0) Seconds INR 1.0 (0.9-1.1) APTT 25.7 (21.0-31.0) Seconds PTT Ratio 1.0 Sodium 138 (136-145) mmol/L Potassium 4.0 (3.5-5.1) mmol/L Chloride 109 H (98-107) mmol/L Carbon Dioxide 25 (21-32) mmol/L Anion Gap 4.0 (3-11) BUN 8 D (7-18) mg/dl Creatinine 0.97 (0.6-1.4) mg/dl Est Cr Clr Drug Dosing 93.5 ml/min Est GFR ( Amer) 97.9 Est GFR (Non-Af Amer) 84.5 BUN/Creatinine Ratio 8.5 L (10-20) Glucose 90 (70-99) mg/dl Calcium 8.2 L (8.5-10.1) mg/dl Total Bilirubin 0.5 (0.2-1) mg/dl AST 30 (15-37) U/L ALT 120 H (12-78) U/L Alkaline Phosphatase 203 H (45-117) U/L Total Protein 6.0 L (6.4-8.2) gm/dl Albumin 2.7 L (3.4-5.0) gm/dl Globulin 3.3 (2.5-4.0) gm/dl Albumin/Globulin Ratio 0.8 L (0.9-2)
[2018-05-28] MEDS ORDERED: metroNIDAZOLE 500 MG TAB PO SCH (12:15)
[2018-05-28] MEDS ORDERED: CIPROFLOXACIN 500 MG TAB PO SCH (12:15)
--- NOTE | 2018-05-28 13:53 | Infectious Disease Progress Nt ---
Date of Service May 28, 2018 Assessment & Plan (1) Cholangitis: Patient with cholangitis following cholecystectomy now status post ERCP and stent placement with improvement. Also with C difficile colitis. Would continue on Zosyn, consider changing to oral Augmentin in near future. Continue vancomycin, would recommend prolonged tapering course given increased chance of recurrence. Will follow. (2) C. difficile colitis: Subjective Patient seen in follow-up for cholangitis, as well as for C diff colitis. Patient feeling much better today, pain essentially resolved. Diarrhea better. No other new complaints. Blood cultures remain negative Review of Systems All systems reviewed & are unremarkable except as noted in HPI & below Physical Exam 2 Vital Signs (Past 24 Hours): Last Vital Signs Temp 36.6 C 05/28/18 08:00 Pulse 61 05/28/18 08:00 Resp 16 05/28/18 08:00 BP 119/87 05/28/18 08:00 Pulse Ox 95 05/28/18 08:00 Constitutional: WD/WN, vitals as above comfortable; no acute distress Eyes: PERRL, conjunctivae normal, anicteric sclerae ENMT: external ear and nose normal, oropharynx normal Neck: trachea midline, no thyromegaly neck nontender Respiratory: normal respiratory effort, lungs clear to auscultation normal percussion; no respiratory distress and does not use accessory muscles Cardiovascular: Rate/Rhythm: regular rate and regular rhythm Heart Sounds: normal S1 and normal S2; no gallop, no murmur and no cardiac rub Vessels: normal peripheral pulses; no JVD Gastrointestinal (Abdomen): Inspection/Auscultation: abdomen normal to inspection and normal bowel sounds Percussion/Palpation: abdomen soft; abdomen nontender (Mild right upper quadrant), no guarding, no hepatosplenomegaly and no abdominal mass Musculoskeletal: no cyanosis or clubbing, extremities motor strength 5/5 Spine: thoracic spine normal to inspection and lumbar spine normal to inspection ; no cervical spinal tenderness Skin: no rashes, warm and dry normal turgor; no lesions Neurologic: patellar DTR's 2+ bilat, sensation intact moves all extremities and awake; no focal motor deficits Motor/Sensory: no sensory deficit Psychiatric: A+Ox3, euthymic affect Orientation: cooperative Lymphatic: no cervical or axillary lymphadenopathy no inguinal lymphadenopathy Results & Data Laboratory Results Short CBC 05/28/18 Range/Units 07:16 WBC 7.79 (4.8-10.8) K/uL Hgb 12.1 L (14.0-18.0) g/dL Hct 36.9 L (42-52) % Plt Count 204 (130-400) K/uL BMP 05/28/18 07:16 Sodium 138 Potassium 4.0 Chloride 109 H Carbon Dioxide 25 BUN 8 D Creatinine 0.97 Glucose 90 Calcium 8.2 L Liver Function 05/28/18 Range/Units 07:16 Total Bilirubin 0.5 (0.2-1) mg/dl AST 30 (15-37) U/L ALT 120 H (12-78) U/L Alkaline Phosphatase 203 H (45-117) U/L Albumin 2.7 L (3.4-5.0) gm/dl Diagnostic Findings Microbiology 05/26/18 10:00 Stool Escherichia coli Shiga Toxins - Preliminary 05/26/18 10:00 Stool Stool Culture - Preliminary No Salmonella isolated to date, No Shigella isolated to date, No Campylobacter jejuni isolated to date. 05/25/18 17:55 Urine,Clean Catch Urine Culture - Final No growth - less than 1,000 colonies/mL. 05/25/18 20:48 Blood Blood Culture - Preliminary No growth to date. 05/25/18 20:37 Blood Blood Culture - Preliminary No growth to date.
--- NOTE | 2018-05-28 14:30 | Hospitalist Progress Note ---
Date of Service May 28, 2018 Assessment & Plan (1) Sepsis: Sepsis secondary to Cholangitis s/p ERCP on 05/26 with Impression: The major papilla appeared congested. A single mild biliary stricture was found at the intraduodenal segment of the bile duct. The stricture was inflammatory appearing. - The entire main bile duct was moderately dilated - The patient has had a cholecystectomy. - A biliary sphincterotomy was performed. - The biliary tree was swept and sludge and pus were found. - One biliary stent was placed into the common bile duct. - Blood culture returned as no growth to date, patient's white blood cell count downtrending with Zosyn antibiotic on this admission, Zosyn stopped on 05/28/18 and patient being transitioned to Ciprofloxacin and Metronidazole, Patient instructed to take 7 days of Ciprofloxacin 500 mg every 12 hours and 7 days of Metronidazole 500 mg every 8 hours Patient has follow up with primary care doctor 06/03/2018 11:40 AM Provider Massimo Canchola MD [facility] (If patient does not tolerate ciprofloxacin and metronidazole, he could be switched to Augmentin by primary care doctor as recommended by infectious disease service as the alternative oral antibiotic) (2) Cholangitis: Sepsis secondary to Cholangitis -S/p ERCP today on 05/26 with a single mild biliary stricture was found at the intraduodenal segment of the bile duct. The biliary tree was swept and sludge and pus were found. One biliary stent was placed into the common bile duct. -Continue Zosyn -Monitor LFTs-- downtrending appropriately -On clear liquid diet per primary service -Blood cultures without growth Resume previous instructions from your gallbladder surgery. No heavy lifting over 20 pounds for another 2 weeks. No strenuous activity until cleared by surgeon Finish entire course of antibiotics as prescribed for c. difficile infection Continue Percocet as needed for pain May take Tylenol as needed for mild pain Patient instructed to Call surgical office for follow-up in 1-2 weeks. Call office at [phone] to make an appointment if you have not already done so. You will also need follow-up appointment with gastroenterology for stent removal in 4-6 weeks (3) C. difficile colitis: C diff tonix positive on 05/26/17 -1st episode of C diff -Had 8 episodes of diarrhea overnight -was started on Vancomycin 125 mg q6 hours on 05/26/18, Take Vancomycin 125 mg every 6 hours with last dose of medication to be finished on 06/04/17 which can be finished as outpatient (4) GERD (gastroesophageal reflux disease): Continue PPI prediabetes, hemoglobin A1c of 5.9 during recent confinement (5) Depression: Stable. Continue Zoloft (6) Tobacco use disorder: Ongoing tobacco use. Nicotine patch as needed Discharge Diagnosis Sepsis, C. difficile infection (C.difficile colitis), Cholangitis Discharge Instructions Resume previous instructions from your gallbladder surgery. No heavy lifting over 20 pounds for another 2 weeks. No strenuous activity until cleared by surgeon Finish entire course of antibiotics as prescribed for c. difficile infection Continue Percocet as needed for pain May take Tylenol as needed for mild pain Call surgical office for follow-up in 1-2 weeks. Call office at [phone] to make an appointment if you have not already done so. You will also need follow-up appointment with gastroenterology for stent removal in 4-6 weeks. Other follow up visits 06/03/2018 11:40 AM Provider Massimo Canchola MD Department Family Practice [facility] Discharge prescriptions Take Vancomycin 125 mg every 6 hours with last dose of medication to be finished on 06/04/17 Take 7 days of Ciprofloxacin 500 mg every 12 hours Take 7 days of Metronidazole 500 mgevery 8 hours Subjective Tolerating diet. Denies fever, chills, lightheadedness, chest pain or SOB. denies abdominal pain Physical Exam 2 Vital Signs (Past 24 Hours): Last Vital Signs Temp 36.6 C 05/28/18 08:00 Pulse 61 05/28/18 08:00 Resp 16 05/28/18 08:00 BP 119/87 05/28/18 08:00 Pulse Ox 95 05/28/18 08:00 Constitutional: WD/WN, vitals as above Eyes: PERRL, conjunctivae normal, anicteric sclerae ENMT: external ear and nose normal, oropharynx normal Neck: trachea midline, no thyromegaly Respiratory: normal respiratory effort, lungs clear to auscultation Cardiovascular: RRR, no murmur, no edema Gastrointestinal (Abdomen): normal bowel sounds, soft, nontender, no hepatosplenomegaly Musculoskeletal: no cyanosis or clubbing, extremities motor strength 5/5 Neurologic: PERRL, EOMI, accommodation nl, no face palsy, no dysarthria Psychiatric: A+Ox3, euthymic affect
--- NOTE | 2018-05-28 14:42 | Discharge Summary ---
Date of Service May 28, 2018 Admission HPI Per Admitting Provider Patient presents the emergency room with nausea and low-grade fever and generally not feeling well. He had a recent laparoscopic cholecystectomy on 05/21/[address] Stacy with cholangiogram which did not Show any filling defects. He did have some preoperative elevation of his liver function studies. These did come down Prior to discharge. Now in the emergency room they are elevated a total bilirubin of 3.0 and elevated AST, ALT, alkaline phosphatase. He also has a leukocytosis of 20,000. He is afebrile at the present time. His CAT scan does not show any significant abscess or fluid collection. There is some question of edema Of the common bile duct. During his hospitalization he was seen by [facility] GI doctors. Admission Exam Per Admitting Provider Temp 36.4 C L 05/25/18 17:20 Pulse 132 H 05/25/18 17:20 Resp 20 05/25/18 17:20 BP 100/68 05/25/18 17:20 Pulse Ox 94 05/25/18 17:36 Currently patient is in the ER bed he is awake and alert does appear to be somewhat ill. He does not show significant icterus his neck is supple. He is in no respiratory distress. His heart shows regular rhythm with mild tachycardia. His extremities are warm. Principal Diagnosis Sepsis, C. difficile infection (C.difficile colitis), Cholangi Discharge Exam Constitutional WD/WN, vitals as above Eyes PERRL, conjunctivae normal, anicteric sclerae ENMT external ear and nose normal, oropharynx normal Neck trachea midline, no thyromegaly Respiratory normal respiratory effort, lungs clear to auscultation Cardiovascular RRR, no murmur, no edema Gastrointestinal (Abdomen) normal bowel sounds, soft, nontender, no hepatosplenomegaly Musculoskeletal no cyanosis or clubbing, extremities motor strength 5/5 Neurologic PERRL, EOMI, accommodation nl, no face palsy, no dysarthria Psychiatric A+Ox3, euthymic affect Discharge Data Allergies Allergy/AdvReac Type Severity Reaction Status Date / Time Sulfa (Sulfonamide Allergy Unknown HAPPENED Verified 05/25/18 18:17 Antibiotics) A CHILD Consultations 05/25/18 19:22 ED Decision to Admit Stat 05/25/18 19:39 Consult Internal Medicine Stat 05/25/18 19:44 Consult Gastroenterology Stat 05/26/18 14:36 Consult Infectious Diseases Routine Procedures Performed Operation Date: 05/26/18 09:10 Actual Procedures p Endoscopic Retrograde Cholangiopancreatogram - Cat Orlando Ordered Studies 05/25/18 17:36 CT abd pelvis IV con only Stat 05/26/18 13:00 FL ERCP biliary ductal Routine Hospital Course (1) Sepsis: Sepsis secondary to Cholangitis s/p ERCP on 05/26 with Impression: The major papilla appeared congested. A single mild biliary stricture was found at the intraduodenal segment of the bile duct. The stricture was inflammatory appearing. - The entire main bile duct was moderately dilated - The patient has had a cholecystectomy. - A biliary sphincterotomy was performed. - The biliary tree was swept and sludge and pus were found. - One biliary stent was placed into the common bile duct. - Blood culture returned as no growth to date, patient's white blood cell count downtrending with Zosyn antibiotic on this admission, Zosyn stopped on 05/28/18 and patient being transitioned to Ciprofloxacin and Metronidazole, Patient instructed to take 7 days of Ciprofloxacin 500 mg every 12 hours and 7 days of Metronidazole 500 mg every 8 hours Patient has follow up with primary care doctor 06/03/2018 11:40 AM Provider Massimo Canchola MD Department [facility] (If patient does not tolerate ciprofloxacin and metronidazole, he could be switched to Augmentin by primary care doctor as recommended by infectious disease service as the alternative oral antibiotic) (2) Cholangitis: Sepsis secondary to Cholangitis -S/p ERCP today on 05/26 with a single mild biliary stricture was found at the intraduodenal segment of the bile duct. The biliary tree was swept and sludge and pus were found. One biliary stent was placed into the common bile duct. -Continue Zosyn -Monitor LFTs-- downtrending appropriately -On clear liquid diet per primary service -Blood cultures without growth Resume previous instructions from your gallbladder surgery. No heavy lifting over 20 pounds for another 2 weeks. No strenuous activity until cleared by surgeon Finish entire course of antibiotics as prescribed for c. difficile infection Continue Percocet as needed for pain May take Tylenol as needed for mild pain Patient instructed to Call surgical office for follow-up in 1-2 weeks. Call office at [phone] to make an appointment if you have not already done so. You will also need follow-up appointment with gastroenterology for stent removal in 4-6 weeks (3) C. difficile colitis: C diff tonix positive on 05/26/17 -1st episode of C diff -Had 8 episodes of diarrhea overnight -was started on Vancomycin 125 mg q6 hours on 05/26/18, Take Vancomycin 125 mg every 6 hours with last dose of medication to be finished on 06/04/17 which can be finished as outpatient (4) GERD (gastroesophageal reflux disease): Continue PPI prediabetes, hemoglobin A1c of 5.9 during recent confinement (5) Depression: Stable. Continue Zoloft (6) Tobacco use disorder: Ongoing tobacco use. Nicotine patch as needed Discharge Diagnosis Sepsis, C. difficile infection (C.difficile colitis), Cholangitis Discharge Instructions Resume previous instructions from your gallbladder surgery. No heavy lifting over 20 pounds for another 2 weeks. No strenuous activity until cleared by surgeon Finish entire course of antibiotics as prescribed for c. difficile infection Continue Percocet as needed for pain May take Tylenol as needed for mild pain Call surgical office for follow-up in 1-2 weeks. Call office at [phone] to make an appointment if you have not already done so. You will also need follow-up appointment with gastroenterology for stent removal in 4-6 weeks. Other follow up visits 06/03/2018 11:40 AM Provider Massimo Canchola MD Department Family Practice [facility] Discharge prescriptions Take Vancomycin 125 mg every 6 hours with last dose of medication to be finished on 06/04/17 Take 7 days of Ciprofloxacin 500 mg every 12 hours Take 7 days of Metronidazole 500 mgevery 8 hours Total Time Total Time Spent Total Time Spent (In Minutes): 40 minutes Total Time Includes: Examination of the Patient, Discharge Planning and Medication Reconciliation Discharge Plan Discharge Items Patient Disposition: Home - Self-Care Reason For Visit: CHOLANGITIS Discharge Diagnosis: Sepsis, C. difficile infection (C.difficile colitis), Cholangitis Condition: Good Discharge Goals: Decrease discomfort and Improve disease control Activity: Per 'Additional Instructions' section Driving/Machine Use: Resume 1 day after discharge Driving/Machine Use Comment: No driving while taking narcotic pain medication Non-emergency contact: Primary Care Provider Call non-emergency contact if: your pain is not controlled, your pain is concerning for you, your temperature is above 101, your wound has increased redness and your wound has increased drainage Diet: Regular Addtl Provider Instructions: Resume previous instructions from your gallbladder surgery. No heavy lifting over 20 pounds for another 2 weeks. No strenuous activity until cleared by surgeon Finish entire course of antibiotics as prescribed for c. difficile infection Continue Percocet as needed for pain May take Tylenol as needed for mild pain Call surgical office for follow-up in 1-2 weeks. Call office at [phone] to make an appointment if you have not already done so. You will also need follow-up appointment with gastroenterology for stent removal in 4-6 weeks. Other follow up visits 06/03/2018 11:40 AM Provider Massimo Canchola MD [facility] Discharge prescriptions Take Vancomycin 125 mg every 6 hours with last dose of medication to be finished on 06/04/17 Take 7 days of Ciprofloxacin 500 mg every 12 hours Take 7 days of Metronidazole 500 mgevery 8 hours Prescriptions: New metronidazole 500 mg Tablet 500 mg PO Q8H 7 Days Qty: 21 RF: 0 ciprofloxacin HCl 500 mg Tablet 500 mg PO Q12H 7 Days Qty: 14 RF: 0 vancomycin 125 mg capsule 125 mg PO Q6H 8 Days Qty: 32 RF: 0 Continue sertraline 100 mg tablet 100 mg PO DAILY RF: 0 pantoprazole 40 mg tablet,delayed release (DR/EC) 40 mg PO BID RF: 0 sennosides-docusate sodium [Senokot-S] 8.6-50 mg tablet 1 tab PO DAILY PRN (Reason: constipation) Qty: 10 RF: 0 acetaminophen [Mapap (acetaminophen)] 325 mg tablet 650 mg PO Q4H PRN (Reason: Fever Or Pain) RF: 0 Discontinued ibuprofen [Motrin IB] 200 mg Tablet 200 - 800 mg PO DIRECTED PRN (Reason: Fever Or Pain) RF: 0 Visit Report Forms: [facility] Stand-Alone Forms: Discharge CDIFF, [facility] Discharge Orders: Discharge Order (Routine); Ordered 05/28/18 Ordered By: Lefty Garcia Admission Data Admit Date/Time: 05/25/18 19:49 Attending Provider: Lefty Garcia Admit Provider: Robert Clemons Primary Care Provider: Massimo Canchola Other Providers: Robert Clemons ; Rachel Irizarry ; Javier Caballero ; Kalie Gibbons ; Trey Mondragon ; Rosario Palm ; Akua Duckworth ; Jayde Borrego ; Vito Matamoros ; Dheeraj Shin ; Gianfranco Armstrong ; Agustin Cui ; Danae Holm ; Surekha Cuello ; Sinai Malcolm ; John Castro ; Lefty Garcia ; Elena Allen ; Alice Isidro ; Lefty Patrick ; Mansoor Dill ; Megan Silvestre Service: Surgical Services Other Pending Studies at Discharge: No
== END 2018-05-28 15:19 | disposition home or self-care (01) | DRG 872 ==
LOC: ED 17:19 → SUATTDRO 19:49 → 3W 19:49
DX: Z83.3 Family history of diabetes mellitus; Z88.2 Allergy status to sulfonamides; F17.210 Nicotine dependence, cigarettes, uncomplicated; K80.33 Calculus of bile duct with acute cholangitis with obstruction; R73.03 Prediabetes; Z90.49 Acquired absence of other specified parts of digestive tract; K83.8 Other specified diseases of biliary tract; Z79.899 Other long term (current) drug therapy; K21.9 Gastro-esophageal reflux disease without esophagitis; A04.72 Enterocolitis due to Clostridium difficile, not specified as recurrent; F40.240 Claustrophobia; A41.9 Sepsis, unspecified organism; F32.9 Major depressive disorder, single episode, unspecified